=== PATIENT | male | born 1985 | race Caucasian/White ===

== ENCOUNTER 2022-10-25 09:53 | Emergency (ER) | payer MEDICAID, SELFPAY ==
--- NOTE | 2022-10-25 09:55 | XR_ITS ---
WS: [id number] XR chest 1V portable [id number] REASON FOR EXAM: cp FINDINGS: The aortic arch is prominent, however the chest is rotated to the left which likely is the cause of t his appearance. The heart is normal. Calcified granulomatous disease in both hemithoraces. No active pulmonary parenchymal or pleural disease. Bony thorax is intact without significant abnormality. XR/XR chest 1V portable [id number] IMPRESSION: Aortic arch appears prominent which likely is due to the rotated position of th e chest. No acute abnormality identified.
[2022-10-25 10:00] VITALS: BP 167/97; PULSE 75; RESP 16; TEMP 36.6; O2SAT 99; BMI 33.9
[2022-10-25 10:04] VITALS: BP 155/60; PULSE 66; O2SAT 94
--- NOTE | 2022-10-25 10:08 | ECG_ITS ---
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 Measurements Intervals [place] Rate: 67 P: 40 NH: 160 QRS: -5 QRSD: 101 T: 2 QT: 407 QTc: 432 Interpretive Statements SINUS RHYTHM No previous ECG available for comparison Electronically Signed On 10-25-2022 12:31:16 CDT by Lydia Silva M.D. [id number]
--- NOTE | 2022-10-25 10:33 | ED_ITS ---
HPI - Chest Pain General: Chief Complaint: Chest Pain Stated Complaint: chest pain, left arm pain Time Seen by Provider: 10/25/22 09:55 Source: patient Mode of arrival: ambulatory Limitations: no limitations History of Present Illness: 36-year-old male states he started having chest pain at 1 AM he states been a pressure type pain in the center of his chest states that lasted until this morning states that over the last 30 minutes an hour its actually resolved but he is concerned. Denies any fever denies any cough denies any worsening improving factors. Associated symptoms: Deny abdominal pain, dyspnea, fever(s), nausea or vomiting Review of Systems Const: Denies: fever(s), chills, body aches or change in appetite ENMT: Denies: throat pain or dental pain Card: Reports: chest pain Resp: Denies: dyspnea GI: Denies: abdominal pain, nausea, vomiting or diarrhea Musc: Denies: neck pain or back pain Skin/Breast: Denies: rash Neuro: Denies: headache(s) PFSH ED PFSH: Medical History Decreased libido Erectile dysfunction Psychiatric care Social History Smoking and tobacco status: light tobacco smoker smokeless tobacco Alcohol intake: current Alcohol intake frequency: few times a week Substance/Drug Use: unknown Adopted: Yes Caregiver/support person: No Lives independently: Yes Marital status: Single Current occupational status: employed Current gender identity: Male Physical Exam Const: COMMON NORMALS: no acute distress, patient oriented x3 and healthy appearing HENMT: COMMON NORMALS: normocephalic and atraumatic HEAD & SCALP: normocephalic and atraumatic Eye: COMMON NORMALS: Equal, round and reactive pupils present and EOMs intact bilaterally PUPIL: Yes Equal, round and reactive pupils present Neck/C-Spine: COMMON NORMALS: full ROM and supple Chest: COMMONS NORMALS: normal inspection of the chest and normal palpation of entire chest wall Resp: COMMON NORMALS: normal respiratory effort, No retractions, No use of accessory muscles and clear to auscultation bilaterally AUSCULTATION: clear to auscultation bilaterally Cardio: COMMON NORMALS: regular rate, regular rhythm and No murmurs present (Cardio) RATE: regular rate RHYTHM: regular rhythm GI: COMMON NORMALS: Normal to inspection, nondistended, normoactive bowel sounds present, Soft to palpation, non-tender and no masses PALPATION: Yes Soft to palpation Extremity: COMMON NORMALS: normal to inspection and full ROM Neuro: COMMON NORMALS: patient oriented x3, moves all extremities and no focal motor deficits Psych: COMMON NORMALS: mental status grossly normal, Normal thought process present and cooperative THOUGHT PROCESS: Normal thought process present Skin: COMMON NORMALS: no rashes or lesions noted and no wounds GENERAL SKIN EXAM: no rashes or lesions noted Course Vital Signs: Vital signs: Vital Signs Temperature 97.9 F 10/25/22 10:00 Pulse Rate 69 10/25/22 11:34 Respiratory Rate 22 H 10/25/22 11:34 Blood Pressure 151/84 10/25/22 11:34 Pulse Oximetry 99 10/25/22 11:34 Oxygen Delivery Me thod Room Air 10/25/22 11:34 MDM - Chest Pain Medical Decision Making Patient presents for chest pain that is atypical in nature CT of his chest shows no acute findings his troponin here is normal his pain has been going on since 1 AM I do not believe he needs a 2-hour troponin he has no signs of acute coronary syndrome no risk factors she is stable for discharge he is to follow-up his PCP and return if worsening. Medical Records I reviewed the patient's medical records. Lab Data I reviewed the patient's lab results. 10/25/22 10:27 10/25/22 10:27 Radiology Impressions Chest X-Ray 10/25/22 09:55 IMPRESSION: Aortic arch appears prominent which likely is due to the rotated position of the chest. No acute abnormality identified. Chest CTA 10/25/22 10:59 IMPRESSION: 1. No acute chest findings. 2. No evidence of pulmonary embolus. 3. Lungs are well aerated. 4. Tiny esophageal hiatal hernia. Laboratory Results WBC 6.6 10^3/uL (4.0-10.0) 10/25/22 10:27 RBC 5.10 10^6/uL (4.1-5.3) 10/25/22 10:27 Hgb 15.8 g/dL (11.7-16.6) 10/25/22 10:27 Hct 45.2 % (42.0-52.0) 10/25/22 10:27 MCV 88.6 fl (80-94) 10/25/22 10:27 MCH 31.0 pg (28.0-34.0) 10/25/22 10:27 MCHC 35.0 g/dL (30.0-36.0) 10/25/22 10:27 RDW 13.1 % (12.1-15.1) 10/25/22 10:27 Plt Count 238 10^3/cmm (130-400) 10/25/22 10:27 MPV 8.6 fL (7.4-10.4) 10/25/22 10:27 Neut % (Auto) 47.8 % 10/25/22 10:27 Lymph % (Auto) 40.9 % 10/25/22 10:27 [place] % (Auto) 7.7 % 10/25/22 10:27 Eos % (Auto) 2.4 % 10/25/22 10:27 Baso % (Auto) 0.9 % 10/25/22 10:27 Neut # (Auto) 3.16 10^3/uL (1.8-7.7) 10/25/22 10:27 Lymph # (Auto) 2.7 10^3/uL (0.8-4.8) 10/25/22 10:27 [place] # (Auto) 0.5 10^3/uL (0.2-0.9) 10/25/22 10:27 Eos # (Auto) 0.2 10^3/uL (0.0-0.8) 10/25/22 10:27 Baso # (Auto) 0.1 10^3/uL (0.0-0.1) 10/25/22 10:27 Nucleated RBC % (auto) 0 % 10/25/22 10:27 Nucleated RBCs # 0.0 /100WBC 10/25/22 10:27 Sodium 136 mmol/L (136-145) 10/25/22 10:27 Potassium 3.7 mmol/L (3.5-5.1) 10/25/22 10:27 Chloride 100 mmol/L (98-107) 10/25/22 10:27 Carbon Dioxide 20 mmol/L (22-29) L 10/25/22 10:27 Anion Gap 19.7 (5-19) H 10/25/22 10:27 BUN 11 mg/dL (6-20) 10/25/22 10:27 Creatinine 0.9 mg/dL (0.7-1.2) 10/25/22 10:27 GFR Calculation 96.6 mL/min (90-130) 10/25/22 10:27 Glucose 179 mg/dL (65-115) H 10/25/22 10:27 Calculated Osmolality 286 mOsm/kg (285-295) 10/25/22 10:27 Calcium 9.3 mg/dL (8.5-10.5) 10/25/22 10:27 Total Bilirubin 0.5 mg/dL (0.15-1.2) 10/25/22 10:27 AST 41 U/L (0-40) H 10/25/22 10:27 ALT 45 U/L (0-41) H 10/25/22 10:27 Alkaline Phosphatase 82 U/L (40-130) 10/25/22 10:27 Troponin T Baseline 8 ng/L (0-15) 10/25/22 10:27 Total Protein 6.9 g/dL (6.6-8.7) 10/25/22 10:27 Albumin 4.5 g/dL (3.5-5.2) 10/25/22 10:27 Globulin 2.4 g/dL (1.3-4.6) 10/25/22 10:27 Lipase 41 U/L (13-60) 10/25/22 10:27 EKG Data EKG 1: I personally reviewed and interpreted this EKG as follows: EKG interpretation date: 10/25/22 EKG interpretation time: 10:08 Interpretation: nsr hr [address] or twave abnormalities qrs 101 qtc 423 Discharge Plan Discharge Patient Disposition: Home Clinical Impression: Chest pain Condition: Stable Prescriptions: No Action Tylenol Ex Str Rapid Release 500 mg Tablet 1,000 mg PO Q6H PRN (Reason: Pain) Discharge Orders: Discharge ED (Routine); Ordered 10/25/22 Ordered By: Mazin Kelly Discharge Diet: Advance as tolerated Discharge Activity: Resume usual activity Patient Instructions: Chest Pain (ED) Coding Level of Care Code ED 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
[2022-10-25 10:37] LABS: Basophils # 0.1 10^3/uL (0.0-0.1); Basophils % 0.9 %; Eosinophils # 0.2 10^3/uL (0.0-0.8); Eosinophils % 2.4 %; Hematocrit 45.2 % (42.0-52.0); Hemoglobin 15.8 g/dL (11.7-16.6); Lymphocytes # 2.7 10^3/uL (0.8-4.8); Lymphocytes % 40.9 %; Mean Corpuscular Volume 88.6 fl (80-94); Mean Platelet Volume 8.6 fL (7.4-10.4); Monocytes # 0.5 10^3/uL (0.2-0.9); Monocytes % 7.7 %; Neutrophils # 3.16 10^3/uL (1.8-7.7); Neutrophils % 47.8 %; Nucleated Red Blood Cells % 0 %; Platelet Count 238 10^3/cmm (130-400); Red Cell Distribution Width 13.1 % (12.1-15.1); White Blood Count 6.6 10^3/uL (4.0-10.0)
[2022-10-25 10:52] LABS: Alanine Aminotransferase 45 U/L (0-41); Albumin Level 4.5 g/dL (3.5-5.2); Alkaline Phosphatase 82 U/L (40-130); Aspartate Amino Transferase 41 U/L (0-40); Blood Urea Nitrogen 11 mg/dL (6-20); Calcium 9.3 mg/dL (8.5-10.5); Carbon Dioxide 20 mmol/L (22-29); Chloride 100 mmol/L (98-107); Creatinine Clr Calc Pharmacy 150.3617; Globulin 2.4 g/dL (1.3-4.6); Glomerular Filtration Rate 96.6 mL/min (90-130); Glucose 179 mg/dL (65-115); Lipase 41 U/L (13-60); Osmolality Calculated 286 mOsm/kg (285-295); Sodium 136 mmol/L (136-145); Total Bilirubin 0.5 mg/dL (0.15-1.2); Total Protein 6.9 g/dL (6.6-8.7)
[2022-10-25 10:53] LABS: Troponin(5th) Baseline 8 ng/L (0-15)
[2022-10-25 10:54] LABS: Anion Gap 19.7 (5-19); Potassium 3.7 mmol/L (3.5-5.1)
--- NOTE | 2022-10-25 10:59 | CT_ITS ---
WS: [id number] CTA OF THE CHEST WITH PULMONARY EMBOLISM PROTOCOL TECHNIQUE: High-resolution contrast enhanced CTA of the chest with coronal and sagittal reformatted i mages with pulmonary embolism protocol. MIP images are also reviewed. CLINICAL INFORMATION: cp COMPARISON: None. DLP: 491.[address] scans at [facility] use at least one of these dose optimization techniques: automated e xposure control; mA and/or kV adjustment per patient size (includes targeted exams where dose is matc hed to clinical indication); or iterative reconstruction. FINDINGS: Proximal main pulmonary arteries are normal. Normal segmental and subsegmental pulmonary ar teries. No evidence of pulmonary embolus. Normal caliber thoracic aorta. Normal descending thoracic aorta. No mediastinal or hilar lymphadenopa thy. No axillary lymphadenopathy. Adrenal glands are normal. Tiny esophageal hiatal hernia.Lungs are well aerated. No acute pulmonary i nfiltrates. No focal pneumonia or pleural fluid. CT/CT angio chest PE protcl [id number] IMPRESSION: 1. No acute chest findings. 2. No evidence of pulmonary embolus. 3. Lungs are well aerated. 4. Tiny esophageal hiatal hernia.
[2022-10-25] MEDS: iohexol 350 mg/mL 500 mL Btl (per mL) IV (11:10)
[2022-10-25 11:34] VITALS: BP 151/84; PULSE 69; RESP 22; O2SAT 99
--- NOTE | 2022-10-25 11:55 | ECG_ITS ---
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 Measurements Intervals [place] Rate: 63 P: 67 VT: 191 QRS: -20 QRSD: 96 T: -8 QT: 385 QTc: 395 Interpretive Statements SINUS RHYTHM WITH SINUS ARRHYTHMIA Compared to ECG 10/25/2022 10:08:08 No significant changes Electronically Signed On 10-25-2022 12:36:06 CDT by Lydia Silva M.D. [id number]
[2022-10-25 13:25] VITALS: BP 130/83; PULSE 72; O2SAT 100
== END 2022-10-25 13:26 | disposition home or self-care (01) ==
PROVIDERS: Emergency Provider Emergency Medicine
DX: R07.9 Chest pain, unspecified (principal); F17.220 Nicotine dependence, chewing tobacco, uncomplicated
CPT/HCPCS: 71045; 71275; 80053; 83690; 84484; 85025; 93005; 99285; Q9967

== ENCOUNTER 2022-11-14 09:15 | Emergency (ER) | payer MEDICAID, SELFPAY ==
[2022-11-14] VITALS (7 sets, daily range): BP systolic 129–145; BP diastolic 85–98; PULSE 57–98; RESP 15–17; TEMP 36.8; O2SAT 97–100; BMI 31.0
[2022-11-14] MEDS: ondansetron 2 mg/ML SDV 2 mL 4 MG IVP (13:32)
[2022-11-14] MEDS: sodium chloride 0.9% 1,000 ML 999 ML IV (13:32)
--- NOTE | 2022-11-14 13:41 | ED_ITS ---
HPI - Abdominal Pain General: Chief Complaint: Abdominal Pain Stated Complaint: says hands are locking up, cold sweats Time Seen by Provider: 11/14/22 13:14 Source: patient Mode of arrival: ambulatory History of Present Illness: 36-year-old male presents emergency room with complaints of epigastric chest discomfort that begins after he eats. He said a couple episodes of this over the last 2 to 3 weeks. He was seen on October 25 cardiac enzymes at that time were negative. He has a slight bump in his transaminases normal alk phos normal T. bili. Had an episode today that began again after he ate he felt hot and flushed while he was outside so we gone from a fan fell like he is in a pass out he went and sat down in a truck he states he was trying to catch his breath leaning out the window of the truck his arms and bilaterally became numb and tingling he had some cramping in his hands. He is not having any chest pain no w. He has no known history of coronary artery disease or arrhythmias. He was nauseous with some these episodes but no vomiting. No history of GI bleed no hematemesis coffee-ground emesis no hematochezia or melena MD elicited complaint: abdominal pain Onset (ago): week(s) Pain Consistency: intermittent Location: Epigastric Severity: mild Quality: cramping and aching Radiation: none Migration to: no migration Exacerbating factors: nothing Associated Symptoms: Reports GI cramping; Denies anorexia, belching, bloating, change in bowel habits, change in stool character, chills, coffee ground emesis, constipation, diarrhea, dyspepsia, dysuria, excessive flatus, fever(s), heartburn, hematochezia, hematuria, hemate mesis, fecal incontinence, loose stools, melena, nausea, poor appetite, syncope and vomiting Review of Systems Const: Denies: fever(s) or chills Card: Denies: syncope GI: Reports: abdominal pain and GI cramping; Denies: nausea, vomiting, hematemesis, coffee ground emesis, heartburn, diarrhea, constipation, bloating, belching, excessive flatus, fecal incontinence, change in bowel habits, change in stool character, hematochezia or melena : Denies: dysuria or hematuria [facility] ED PFSH: Medical History Decreased libido Erectile dysfunction Psychiatric care Social History Smoking and tobacco status: light tobacco smoker smokeless tobacco Alcohol intake: current Alcohol intake frequency: few times a week Substance/Drug Use: unknown Adopted: Yes Caregiver/support person: No Lives independently: Yes Marital status: Single Current occupational status: employed Current gender identity: Male Physical Exam Const: GENERAL APPEARANCE: cooperative and comfortable ORIENTATION/CONSCIOUSNESS: Yes awake, Yes oriented to person, Yes oriented to place and Yes oriented to time HENMT: COMMON NORMALS: normocephalic, atraumatic and hearing grossly normal bilaterally HEAD & SCALP: normocephalic and atraumatic Resp: COMMON NORMALS: normal respiratory effort, No retractions, No use of accessory muscles and clear to auscultation bilaterally AUSCULTATION: clear to auscultation bilaterally Cardio: COMMON NORMALS: regular rate, regular rhythm and No murmurs present (Cardio) RATE: regular rate RHYTHM: regular rhythm GI: COMMON NORMALS: Soft to palpation and No hepatosplenomegaly present AUSCULTATION: Yes normoactive bowel sounds PALPATION: Yes Soft to palpation, No Tenderness to palpation present (GI), No Guarding due to palpation present (GI) and Yes No hepatosplenomegaly present Extremity: COMMON NORMALS: normal to inspection, capillary refill normal, no clubbing, cyanosis or edema, no calf tenderness and no pedal edema Neuro: SENSORIUM/ORIENTATION: Yes oriented to person, Yes oriented to place and Yes oriented to time Skin: COMMON NORMALS: no rashes or lesions noted GENERAL SKIN EXAM: no rashes or lesions noted Course Vital Signs: Vital signs: Vital Signs Temperature 98.2 F 11/14/22 09:54 Pulse Rate 64 11/14/22 14:45 Respiratory Rate 16 11/14/22 14:45 Blood Pressure 136/92 11/14/22 14:45 Pulse Oximetry 97 11/14/22 14:45 Oxygen Delivery Me thod Room Air 11/14/22 09:54 MDM - Abdominal Pain Medical Decision Making Labs and imaging reviewed. EKG unremarkable. From his description sounds like patient hyperventilated. We will start on proton pump inhibitor discussed anxiety with patient and hyperventilation had reviewed his other labs follow-up as needed Medical Records I reviewed the patient's medical records. Lab Data I reviewed the patient's lab results. 11/14/22 13:28 11/14/22 13:28 Labs/Radiology: Laboratory Results WBC 11.8 10^3/uL (4.0-10.0) H 11/14/22 13:28 RBC 5.45 10^6/uL (4.1-5.3) H 11/14/22 13:28 Hgb 16.3 g/dL (11.7-16.6) 11/14/22 13:28 Hct 47.9 % (42.0-52.0) 11/14/22 13:28 MCV 87.9 fl (80-94) 11/14/22 13:28 MCH 29.9 pg (28.0-34.0) 11/14/22 13:28 MCHC 34.0 g/dL (30.0-36.0) 11/14/22 13:28 RDW 13.1 % (12.1-15.1) 11/14/22 13:28 Plt Count 313 10^3/cmm (130-400) 11/14/22 13:28 MPV 8.5 fL (7.4-10.4) 11/14/22 13:28 Neut % (Auto) 58.2 % 11/14/22 13:28 Lymph % (Auto) 34.3 % 11/14/22 13:28 [place] % (Auto) 6.0 % 11/14/22 13:28 Eos % (Auto) 0.6 % 11/14/22 13:28 Baso % (Auto) 0.6 % 11/14/22 13:28 Neut # (Auto) 6.88 10^3/uL (1.8-7.7) 11/14/22 13:28 Lymph # (Auto) 4.1 10^3/uL (0.8-4.8) 11/14/22 13:28 [place] # (Auto) 0.7 10^3/uL (0.2-0.9) 11/14/22 13:28 Eos # (Auto) 0.1 10^3/uL (0.0-0.8) 11/14/22 13:28 Baso # (Auto) 0.1 10^3/uL (0.0-0.1) 11/14/22 13:28 Nucleated RBC % (auto) 0 % 11/14/22 13:28 Nucleated RBCs # 0.0 /100WBC 11/14/22 13:28 Sodium 138 mmol/L (136-145) 11/14/22 13:28 Potassium 4.2 mmol/L (3.5-5.1) 11/14/22 13:28 Chloride 101 mmol/L (98-107) 11/14/22 13:28 Carbon Dioxide 24 mmol/L (22-29) 11/14/22 13:28 Anion Gap 17.2 (5-19) 11/14/22 13:28 BUN 14 mg/dL (6-20) 11/14/22 13:28 Creatinine 1.0 mg/dL (0.7-1.2) 11/14/22 13:28 GFR Calculation 85.5 mL/min (90-130) L 11/14/22 13:28 Glucose 92 mg/dL (65-115) 11/14/22 13:28 Calculated Osmolality 286 mOsm/kg (285-295) 11/14/22 13:28 Calcium 10.1 mg/dL (8.5-10.5) 11/14/22 13:28 Total Bilirubin 0.5 mg/dL (0.15-1.2) 11/14/22 13:28 AST 24 U/L (0-40) 11/14/22 13:28 ALT 36 U/L (0-41) 11/14/22 13:28 Alkaline Phosphatase 83 U/L (40-130) 11/14/22 13:28 Troponin T Baseline 12 ng/L (0-15) 11/14/22 13:28 Total Protein 7.8 g/dL (6.6-8.7) 11/14/22 13:28 Albumin 5.0 g/dL (3.5-5.2) 11/14/22 13:28 Globulin 2.8 g/dL (1.3-4.6) 11/14/22 13:28 Lipase 25 U/L (13-60) 11/14/22 13:28 Discharge Plan Discharge Patient Disposition: Home Clinical Impression: Chest pain due to gastrointestinal reflux disease, Hyperventilation Condition: Stable Prescriptions: New pantoprazole 40 mg tablet,delayed release (DR/EC) 40 mg PO QAM 28 Days Qty: 28 0RF Rx Instructions: pt not filled rx as of 11/15/22 No Action hydroxyzine HCl 25 mg tablet 25 mg PO QID PRN (Reason: anxiety) Qty: 14 0RF acetaminophen [Tylenol Ex Str Rapid Release] 500 mg Tablet 1,000 mg PO Q6H PRN (Reason: Pain) Discharge Orders: Discharge ED (Routine); Ordered 11/14/22 Ordered By: Delfino Encarnacion Discharge Diet: As Directed Discharge Activity: Increase activity as tolerated Patient Instructions: Diet for Stomach Ulcers and Gastritis (ED), Opioid Safety, Pain Management Activity Restrictions/Additional Instructions: You were seen today for chest discomfort you have for the last several weeks. Your cardiac enzyme is negative EKG is unremarkable your chemistries and liver enzymes were all normal. Recommend diet as prescribed with your discharge instructions start pantoprazole 40 mg once daily. You are given enough for 28 days follow-up with your primary care doctor to continue the medications. Coding Level of Care Code ED Hand Outside Cutter for Yahir Munoz
[2022-11-14 13:42] LABS: Basophils # 0.1 10^3/uL (0.0-0.1); Basophils % 0.6 %; Eosinophils # 0.1 10^3/uL (0.0-0.8); Eosinophils % 0.6 %; Hematocrit 47.9 % (42.0-52.0); Hemoglobin 16.3 g/dL (11.7-16.6); Lymphocytes # 4.1 10^3/uL (0.8-4.8); Lymphocytes % 34.3 %; Mean Corpuscular Hemoglobin 29.9 pg (28.0-34.0); Mean Corpuscular Volume 87.9 fl (80-94); Mean Platelet Volume 8.5 fL (7.4-10.4); Monocytes # 0.7 10^3/uL (0.2-0.9); Neutrophils # 6.88 10^3/uL (1.8-7.7); Neutrophils % 58.2 %; Nucleated Red Blood Cells % 0 %; Platelet Count 313 10^3/cmm (130-400); Red Blood Count 5.45 10^6/uL (4.1-5.3); Red Cell Distribution Width 13.1 % (12.1-15.1); White Blood Count 11.8 10^3/uL (4.0-10.0)
[2022-11-14 13:58] LABS: Alanine Aminotransferase 36 U/L (0-41); Alkaline Phosphatase 83 U/L (40-130); Anion Gap 17.2 (5-19); Aspartate Amino Transferase 24 U/L (0-40); Blood Urea Nitrogen 14 mg/dL (6-20); Calcium 10.1 mg/dL (8.5-10.5); Carbon Dioxide 24 mmol/L (22-29); Chloride 101 mmol/L (98-107); Globulin 2.8 g/dL (1.3-4.6); Glomerular Filtration Rate 85.5 mL/min (90-130); Glucose 92 mg/dL (65-115); Lipase 25 U/L (13-60); Osmolality Calculated 286 mOsm/kg (285-295); Potassium 4.2 mmol/L (3.5-5.1); Sodium 138 mmol/L (136-145); Total Bilirubin 0.5 mg/dL (0.15-1.2); Total Protein 7.8 g/dL (6.6-8.7)
--- NOTE | 2022-11-14 14:12 | ECG_ITS ---
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 Measurements Intervals [place] Rate: 56 P: 63 CT: 186 QRS: -2 QRSD: 94 T: 19 QT: 407 QTc: 395 Interpretive Statements SINUS BRADYCARDIA Compared to ECG 10/25/2022 11:50:36 Sinus rhythm no longer present Sinus arrhythmia no longer present Electronically Signed On 11-14-2022 17:30:46 CDT by Jose Alfredo Molina M.D. [id number]
[2022-11-14 14:58] LABS: Troponin(5th) Baseline 12 ng/L (0-15)
== END 2022-11-14 15:52 | disposition home or self-care (01) ==
PROVIDERS: Emergency Provider Family Medicine
DX: K21.9 Gastro-esophageal reflux disease without esophagitis (principal); I10 Essential (primary) hypertension
CPT/HCPCS: 80053; 83690; 84484; 85025; 93005; 96361; 96374; 99284; J2405; J7030

== ENCOUNTER 2022-11-15 08:38 | Emergency (ER) | payer MEDICAID, SELFPAY ==
--- NOTE | 2022-11-15 08:44 | ECG_ITS ---
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 Measurements Intervals [place] Rate: 60 P: 32 HI: 175 QRS: 13 QRSD: 92 T: -9 QT: 388 QTc: 388 Interpretive Statements SINUS RHYTHM Compared to ECG 11/14/2022 14:12:04 Sinus bradycardia no longer present Electronically Signed On 11-15-2022 20:26:38 CDT by Chica Alvarado M.D. [email or web address] [id number]
[2022-11-15 09:01] VITALS: BP 157/95; PULSE 67; RESP 18; TEMP 36.6; O2SAT 99
[2022-11-15 09:51] LABS: Basophils % 0.4 %; Eosinophils # 0.1 10^3/uL (0.0-0.8); Hematocrit 45.2 % (42.0-52.0); Hemoglobin 15.4 g/dL (11.7-16.6); Lymphocytes # 3.7 10^3/uL (0.8-4.8); Lymphocytes % 40.4 %; Mean Corpuscular HGB Conc 34.1 g/dL (30.0-36.0); Mean Corpuscular Volume 88.1 fl (80-94); Mean Platelet Volume 8.6 fL (7.4-10.4); Monocytes # 0.6 10^3/uL (0.2-0.9); Monocytes % 6.6 %; Neutrophils # 4.68 10^3/uL (1.8-7.7); Neutrophils % 51.4 %; Nucleated Red Blood Cells % 0 %; Platelet Count 297 10^3/cmm (130-400); Red Blood Count 5.13 10^6/uL (4.1-5.3); Red Cell Distribution Width 12.8 % (12.1-15.1); White Blood Count 9.1 10^3/uL (4.0-10.0)
[2022-11-15] MEDS: iohexol 350 mg/mL 500 mL Btl (per mL) IV (09:57)
[2022-11-15 10:00] VITALS: BP 154/92; PULSE 77; RESP 20; O2SAT 100
[2022-11-15 10:17] LABS: Alveolar-Arterial Oxygen Gradi 0.2 mmHg (5-10); Base Excess ABG -0.4 mmol/L (-2.0-2.0); Blood Gas Allen Test Pos; Blood Gas Operator Identificat CAK; Blood Gas Sample Site Radial, left; Blood Gas Sample Type Arterial; Carboxyhemoglobin 0.6 %THgb (0.4-20.1); HCO3 ABG 18.4 mmol/L (22-26); HGB O2 Sat 98.8 % (95-100); Ionized Calcium Level - ABG 1.2 mmol/L (1.1-1.4); Methemoglobin 0.3 % (0.4-1.5); Oxygen Device ROOM AIR; Oxygen Saturation ABG 99.7; Total Hemoglobin 16.3 g/dL (14-18)
[2022-11-15 10:20] LABS: ABG PCO2 19.2 mmHg (35-45); ABG PH Result 7.59 (7.35-7.45)
[2022-11-15 10:20] LABS: Alanine Aminotransferase 30 U/L (0-41); Albumin Level 4.6 g/dL (3.5-5.2); Alkaline Phosphatase 76 U/L (40-130); Anion Gap 17.9 (5-19); Aspartate Amino Transferase 20 U/L (0-40); Blood Urea Nitrogen 13 mg/dL (6-20); Calcium 9.5 mg/dL (8.5-10.5); Carbon Dioxide 20 mmol/L (22-29); Chloride 104 mmol/L (98-107); Globulin 2.4 g/dL (1.3-4.6); Glomerular Filtration Rate 96.6 mL/min (90-130); Glucose 104 mg/dL (65-115); Lipase 21 U/L (13-60); Osmolality Calculated 286 mOsm/kg (285-295); Potassium 3.9 mmol/L (3.5-5.1); Sodium 138 mmol/L (136-145); Total Bilirubin 0.7 mg/dL (0.15-1.2)
[2022-11-15 10:21] LABS: Troponin(5th) Baseline 9 ng/L (0-15)
[2022-11-15 10:59] VITALS: BP 133/91; PULSE 62; RESP 17; O2SAT 98
[2022-11-15 11:16] VITALS: BP 140/88; PULSE 70; RESP 18; O2SAT 99
--- NOTE | 2022-11-15 12:56 | ED_ITS ---
HPI - General Adult General: Chief complaint: General Medical Stated complaint: bp issues, sent by clinic Time Seen by Provider: 11/15/22 08:43 Source: patient Mode of arrival: ambulatory History of Present Illness: 36-year-old male presents emergency room again with left-sided chest discomfort of squeezing sensation numbness and tingling radiating into his arms bilaterally was going to try to establish with for a PCP today his blood pressure was elevated. Has been seen several times recently. Cardiac enzymes have been neg ative he was given proton pump inhibitor yesterday no hematochezia melena hematemesis or coffee-ground emesis liver functions yesterday were normal. Onset (ago): minute(s) Associated symptoms: Reports chest pain, dyspnea, palpitations and short of breath; Deny confusion, cough, diaphoresis, decreased appetite, fevers/chills, headach e(s), malaise, nausea, rash, seizures, syncope, vomiting, weakness or other Treatments prior to arrival: none Review of Systems Const: Denies: fever(s), chills, malaise or diaphoresis ENMT: Denies: throat pain, ear or mastoid pain, nasal discharge or nasal congestion Card: Reports: chest pain and palpitations; Denies: syncope Resp: Reports: dyspnea GI: Denies: abdominal pain, nausea or vomiting : Denies: flank pain, dysuria, urinary frequency or urinary urgency Musc: Denies: neck pain or back pain Skin/Breast: Denies: rash or pruritus Neuro: Denies: headache(s) or confusion PFSH ED PFSH: Medical History Decreased libido Erectile dysfunction Psychiatric care Social History Smoking and tobacco status: light tobacco smoker smokeless tobacco Alcohol intake: current Alcohol intake frequency: few times a week Substance/Drug Use: unknown Adopted: Yes Caregiver/support person: No Lives independently: Yes Marital status: Single Current occupational status: employed Current gender identity: Male Physical Exam Const: GENERAL APPEARANCE: cooperative and comfortable ORIENTATION/CONSCIOUSNESS: Yes awake, Yes oriented to person, Yes oriented to pl [address] and Yes oriented to time HENMT: COMMON NORMALS: normocephalic, atraumatic and hearing grossly normal bilaterally HEAD & SCALP: normocephalic and atraumatic Resp: COMMON NORMALS: normal respiratory effort, No retractions, No use of accessory muscles and clear to auscultation bilaterally AUSCULTATION: clear to auscultation bilaterally Cardio: COMMON NORMALS: regular rate, regular rhythm and No murmurs present (Cardio) RATE: regular rate RHYTHM: regular rhythm GI: COMMON NORMALS: Soft to palpation and No hepatosplenomegaly present AUSCULTATION: Yes normoactive bowel sounds PALPATION: Yes Soft to palpation, No Tenderness to palpation present (GI), No Guarding due to palpation present (GI) and Yes No hepatosplenomegaly present Extremity: COMMON NORMALS: normal to inspection, capillary refill normal, no clubbing, cyanosis or edema, no calf tenderness and no pedal edema Neuro: SENSORIUM/ORIENTATION: Yes oriented to person, Yes oriented to place and Yes oriented to time Skin: COMMON NORMALS: no rashes or lesions noted GENERAL SKIN EXAM: no rashes or lesions noted Course Vital Signs: Vital signs: Vital Signs Temperature 97.9 F 11/15/22 09:01 Pulse Rate 70 11/15/22 11:16 Respiratory Rate 18 11/15/22 11:16 Blood Pressure 140/88 11/15/22 11:16 Pulse Oximetry 99 11/15/22 11:16 Oxygen Delivery Me thod Room Air 11/15/22 10:00 [facility] - General Adult Medical Decision Making Shortly after initially seen the patient began being more tachypneic complaint reports chest tightness with numbness and tingling in his face and extremities ABG was done patient is hyperventilating with a pH near 7.6 PCO2 that is significantly depressed. Reexamination is no focal neurologic deficit noted CTs of the head and CTA head and neck are canceled. Discussed with the patient the findings. This is consistent with what we had rather suspected the a lot of this is anxiety driven he does have some relationship issues at work, over the last few months that are weighing on him. We will discharge him home hydroxyzine to use as needed and referral to [facility] for long-term management of anxiety. Medical Records I reviewed the patient's medical records. Lab Data I reviewed the patient's lab results. 11/15/22 09:28 11/15/22 09:28 Laboratory Results WBC 9.1 10^3/uL (4.0-10.0) 11/15/22 09: RBC 5.13 10^6/uL (4.1-5.3) 11/15/22 09: Hgb 15.4 g/dL (11.7-16.6) 11/15/22 09: Hct 45.2 % (42.0-52.0) 11/15/22 09: MCV 88.1 fl (80-94) 11/15/22 09: MCH 30.0 pg (28.0-34.0) 11/15/22 09: MCHC 34.1 g/dL (30.0-36.0) 11/15/22 09: RDW 12.8 % (12.1-15.1) 11/15/22 09: Plt Count 297 10^3/cmm (130-400) 11/15/22 09: MPV 8.6 fL (7.4-10.4) 11/15/22 09: Neut % (Auto) 51.4 % 11/15/22 09: Lymph % (Auto) 40.4 % 11/15/22 09:28 Bee % (Auto) 6.6 % 11/15/22 09: Eos % (Auto) 1.0 % 11/15/22 09: Baso % (Auto) 0.4 % 11/15/22 09: Neut # (Auto) 4.68 10^3/uL (1.8-7.7) 11/15/22 09: Lymph # (Auto) 3.7 10^3/uL (0.8-4.8) 11/15/22 09:28 Bee # (Auto) 0.6 10^3/uL (0.2-0.9) 11/15/22 09: Eos # (Auto) 0.1 10^3/uL (0.0-0.8) 11/15/22 09: Baso # (Auto) 0.0 10^3/uL (0.0-0.1) 11/15/22 09: Nucleated RBC % (auto) 0 % 11/15/22 09: Nucleated RBCs # 0.0 /100WBC 11/15/22 09: Specimen Type Arterial 11/15/22 10:05 Sample Site Radial, left 11/15/22 10:05 ABG pH 7.59 (7.35-7.45) H* 11/15/22 10:05 ABG pCO2 19.2 mmHg (35-45) L* 11/15/22 10:05 ABG pO2 122.0 mmHg (80.0-100.0) H 11/15/22 10:05 ABG HCO3 18.4 mmol/L (22-26) L 11/15/22 10:05 ABG O2 Saturation 99.7 11/15/22 10:05 ABG Base Excess -0.4 mmol/L (-2.0-2.0) 11/15/22 10:05 Horacio Test Pos 11/15/22 10:05 A-a O2 Gradient 0.2 mmHg (5-10) L 11/15/22 10:05 Hematocrit 50.0 % (42-52) 11/15/22 10:05 Hgb O2 Saturation 98.8 % (95-100) 11/15/22 10:05 Carboxyhemoglobin 0.6 %THgb (0.4-20.1) 11/15/22 10:05 Methemoglobin 0.3 % (0.4-1.5) L 11/15/22 10:05 Total Hemoglobin 16.3 g/dL (14-18) 11/15/22 10:05 Sodium 141.0 mmol/L (131-143) 11/15/22 10:05 Potassium 4.0 mmol/L (3.5-5.0) 11/15/22 10:05 Glucose 106.0 mg/dL (70-115) 11/15/22 10:05 Ionized Calcium 1.2 mmol/L (1.1-1.4) 11/15/22 10:05 O2 Delivery Device Room air 11/15/22 10:05 FiO2 21.0 % 11/15/22 10:05 Inspecting Machine Adjuster ID Cak 11/15/22 10:05 Sodium 138 mmol/L (136-145) 11/15/22 09:28 Potassium 3.9 mmol/L (3.5-5.1) 11/15/22 09:28 Chloride 104 mmol/L (98-107) 11/15/22 09:28 Carbon Dioxide 20 mmol/L (22-29) L 11/15/22 09:28 Anion Gap 17.9 (5-19) 11/15/22 09:28 BUN 13 mg/dL (6-20) 11/15/22 09:28 Creatinine 0.9 mg/dL (0.7-1.2) 11/15/22 09:28 GFR Calculation 96.6 mL/min (90-130) 11/15/22 09:28 Glucose 104 mg/dL (65-115) 11/15/22 09:28 Calculated Osmolality 286 mOsm/kg (285-295) 11/15/22 09:28 Calcium 9.5 mg/dL (8.5-10.5) 11/15/22 09:28 Total Bilirubin 0.7 mg/dL (0.15-1.2) 11/15/22 09:28 AST 20 U/L (0-40) 11/15/22 09:28 ALT 30 U/L (0-41) 11/15/22 09:28 Alkaline Phosphatase 76 U/L (40-130) 11/15/22 09:28 Troponin T Baseline 9 ng/L (0-15) 11/15/22 09:28 Total Protein 7.0 g/dL (6.6-8.7) 11/15/22 09:28 Albumin 4.6 g/dL (3.5-5.2) 11/15/22 09:28 Globulin 2.4 g/dL (1.3-4.6) 11/15/22 09:28 Lipase 21 U/L (13-60) 11/15/22 09:28 Discharge Plan Discharge Patient Disposition: Home Clinical Impression: Hyperventilation syndrome Condition: Stable Prescriptions: New hydroxyzine HCl 25 mg tablet 25 mg PO QID PRN (Reason: anxiety) Qty: 14 0RF No Action acetaminophen [Tylenol Ex Str Rapid Release] 500 mg Tablet 1,000 mg PO Q6H PRN (Reason: Pain) pantoprazole 40 mg tablet,delayed release (DR/EC) 40 mg PO QAM 28 Days Qty: 28 0RF Rx Instructions: pt not filled rx as of 11/15/22 Discharge Orders: Discharge ED (Routine); Ordered 11/15/22 Ordered By: Delfino Encarnacion Discharge Diet: Usual diet Discharge Activity: Resume usual activity Patient Instructions: Opioid Safety, Pain Management Activity Restrictions/Additional Instructions: Case management will make arrangements for you to follow-up with behavioral health clinic. Coding Level of Care Code ED Hydraulic Punch Press Operator for Yahir Munoz
--- NOTE | 2022-11-15 14:47 | ED_ITS ---
HPI - General Adult General: Chief complaint: General Medical Stated complaint: bp issues, sent by clinic Time Seen by Provider: 11/15/22 08:43 Source: patient Mode of arrival: ambulatory History of Present Illness: 36-year-old male who presents emergency room with complaints of chest discomfort. He has been in several times in the last week and a half he was here yesterday. Evaluations have been negative previously including cardiac enzymes. There was concern about his gallbladder liver enzymes are unremarkable. He was given proton pump inhibitor yesterday this morning he went to a local physician's office to establish for PCP and noted to have elevated blood pressure was complaining chest comfort was referred to the emergency room. Associated symptoms: Reports chest pain, dyspnea and short of breath; Deny confusion, cough, diaphoresis, decreased appetite, fevers/chills, he adache(s), malaise, nausea, rash, palpitations, seizures, syncope, vomiting or weakness Treatments prior to arrival: none Review of Systems Const: Denies: fever(s), chills, malaise or diaphoresis ENMT: Denies: throat pain, ear or mastoid pain, nasal discharge or nasal c ongestion Card: Reports: chest pain; Denies: palpitations or syncope Resp: Reports: dyspnea; Denies: productive cough or non-productive cough GI: Denies: abdominal pain, nausea or vomiting : Denies: flank pain, dysuria, urinary frequency or urinary urgency Musc: Denies: neck pain or back pain Skin/Breast: Denies: rash Neuro: Denies: headache(s) or confusion PFSH ED PFSH: Medical History Decreased libido Erectile dysfunction Psychiatric care Social History Smoking and tobacco status: light tobacco smoker smokeless tobacco Alcohol intake: current Alcohol intake frequency: few times a week Substance/Drug Use: unknown Adopted: Yes Caregiver/support person: No Lives independently: Yes Marital status: Single Current occupational status: employed Current gender identity: Male Physical Exam Const: GENERAL APPEARANCE: cooperative and comfortable ORIENTATION/CONSCIOUSNESS: Yes awake, Yes oriented to person, Yes oriented to place and Yes oriented to time HENMT: COMMON NORMALS: normocephalic, atraumatic and hearing grossly normal bilaterally HEAD & SCALP: normocephalic and atraumatic Resp: COMMON NORMALS: normal respiratory effort, No retractions, No use of accessory muscles and clear to auscultation bilaterally AUSCULTATION: clear to auscultation bilaterally Cardio: COMMON NORMALS: regular rate, regular rhythm and No murmurs present (Cardio) RATE: regular rate RHYTHM: regular rhythm GI: COMMON NORMALS: Soft to palpation and No hepatosplenomegaly present AUSCULTATION: Yes normoactive bowel sounds PALPATION: Yes Soft to palpation, No Tenderness to palpation present (GI), No Guarding due to palpation present (GI) and Yes No hepatosplenomegaly present Extremity: COMMON NORMALS: normal to inspection, capillary refill normal, no clubbing, cyanosis or edema, no calf tenderness and no pedal edema Neuro: SENSORIUM/ORIENTATION: Yes oriented to person, Yes oriented to place and Yes oriented to time Skin: COMMON NORMALS: no rashes or lesions noted GENERAL SKIN EXAM: no rashes or lesions noted Course Vital Signs: Vital signs: Vital Signs Temperature 97.9 F 11/15/22 09:01 Pulse Rate 70 11/15/22 11:16 Respiratory Rate 18 11/15/22 11:16 Blood Pressure 140/88 11/15/22 11:16 Pulse Oximetry 99 11/15/22 11:16 Oxygen Delivery Me thod Room Air 11/15/22 10:00 [facility] - General Adult Medical Decision Making After initially seen the patient he began having more chest tightness numbness in his face and extremities and ABG was done showed significant hyper ventilation of the respiratory alkalosis is PCO2 is down to 17 his pH is at 7.6. Reviewed the findings with the patient. We had ordered a CTA head and neck this was canceled after being able to objectively show the cause of his symptoms reviewed this with the patient discharge home continue the PPI we will give him hydroxyzine to use as needed and set him up for behavioral health. Medical Records I reviewed the patient's medical records. Lab Data I reviewed the patient's lab results. 11/15/22 09:28 11/15/22 09:28 Laboratory Results WBC 9.1 10^3/uL (4.0-10.0) 11/15/22 09:28 RBC 5.13 10^6/uL (4.1-5.3) 11/15/22 09:28 Hgb 15.4 g/dL (11.7-16.6) 11/15/22 09: Hct 45.2 % (42.0-52.0) 11/15/22 09: MCV 88.1 fl (80-94) 11/15/22 09:28 MCH 30.0 pg (28.0-34.0) 11/15/22 09: MCHC 34.1 g/dL (30.0-36.0) 11/15/22 09: RDW 12.8 % (12.1-15.1) 11/15/22 09: Plt Count 297 10^3/cmm (130-400) 11/15/22 09: MPV 8.6 fL (7.4-10.4) 11/15/22 09:28 Neut % (Auto) 51.4 % 11/15/22 09: Lymph % (Auto) 40.4 % 11/15/22 09: [place] % (Auto) 6.6 % 11/15/22 09:28 Eos % (Auto) 1.0 % 11/15/22 09: Baso % (Auto) 0.4 % 11/15/22 09: Neut # (Auto) 4.68 10^3/uL (1.8-7.7) 11/15/22 09: Lymph # (Auto) 3.7 10^3/uL (0.8-4.8) 11/15/22 09: [place] # (Auto) 0.6 10^3/uL (0.2-0.9) 11/15/22 09: Eos # (Auto) 0.1 10^3/uL (0.0-0.8) 11/15/22 09: Baso # (Auto) 0.0 10^3/uL (0.0-0.1) 11/15/22 09: Nucleated RBC % (auto) 0 % 11/15/22 09: Nucleated RBCs # 0.0 /100WBC 11/15/22 09:28 Specimen Type Arterial 11/15/22 10:05 Sample Site Radial, left 11/15/22 10:05 ABG pH 7.59 (7.35-7.45) H* 11/15/22 10:05 ABG pCO2 19.2 mmHg (35-45) L* 11/15/22 10:05 ABG pO2 122.0 mmHg (80.0-100.0) H 11/15/22 10:05 ABG HCO3 18.4 mmol/L (22-26) L 11/15/22 10:05 ABG O2 Saturation 99.7 11/15/22 10:05 ABG Base Excess -0.4 mmol/L (-2.0-2.0) 11/15/22 10:05 Horacio Test Pos 11/15/22 10:05 A-a O2 Gradient 0.2 mmHg (5-10) L 11/15/22 10:05 Hematocrit 50.0 % (42-52) 11/15/22 10:05 Hgb O2 Saturation 98.8 % (95-100) 11/15/22 10:05 Carboxyhemoglobin 0.6 %THgb (0.4-20.1) 11/15/22 10:05 Methemoglobin 0.3 % (0.4-1.5) L 11/15/22 10:05 Total Hemoglobin 16.3 g/dL (14-18) 11/15/22 10:05 Sodium 141.0 mmol/L (131-143) 11/15/22 10:05 Potassium 4.0 mmol/L (3.5-5.0) 11/15/22 10:05 Glucose 106.0 mg/dL (70-115) 11/15/22 10:05 Ionized Calcium 1.2 mmol/L (1.1-1.4) 11/15/22 10:05 O2 Delivery Device Room air 11/15/22 10:05 FiO2 21.0 % 11/15/22 10:05 Correctional Supervising Cook ID Cak 11/15/22 10:05 Sodium 138 mmol/L (136-145) 11/15/22 09:28 Potassium 3.9 mmol/L (3.5-5.1) 11/15/22 09:28 Chloride 104 mmol/L (98-107) 11/15/22 09:28 Carbon Dioxide 20 mmol/L (22-29) L 11/15/22 09:28 Anion Gap 17.9 (5-19) 11/15/22 09:28 BUN 13 mg/dL (6-20) 11/15/22 09:28 Creatinine 0.9 mg/dL (0.7-1.2) 11/15/22 09:28 GFR Calculation 96.6 mL/min (90-130) 11/15/22 09:28 Glucose 104 mg/dL (65-115) 11/15/22 09:28 Calculated Osmolality 286 mOsm/kg (285-295) 11/15/22 09:28 Calcium 9.5 mg/dL (8.5-10.5) 11/15/22 09:28 Total Bilirubin 0.7 mg/dL (0.15-1.2) 11/15/22 09:28 AST 20 U/L (0-40) 11/15/22 09:28 ALT 30 U/L (0-41) 11/15/22 09:28 Alkaline Phosphatase 76 U/L (40-130) 11/15/22 09:28 Troponin T Baseline 9 ng/L (0-15) 11/15/22 09:28 Total Protein 7.0 g/dL (6.6-8.7) 11/15/22 09:28 Albumin 4.6 g/dL (3.5-5.2) 11/15/22 09:28 Globulin 2.4 g/dL (1.3-4.6) 11/15/22 09:28 Lipase 21 U/L (13-60) 11/15/22 09:28 Discharge Plan Discharge Patient Disposition: Home Clinical Impression: Hyperventilation syndrome Condition: Stable Prescriptions: New hydroxyzine HCl 25 mg tablet 25 mg PO QID PRN (Reason: anxiety) Qty: 14 0RF No Action acetaminophen [Tylenol Ex Str Rapid Release] 500 mg Tablet 1,000 mg PO Q6H PRN (Reason: Pain) pantoprazole 40 mg tablet,delayed release (DR/EC) 40 mg PO QAM 28 Days Qty: 28 0RF Rx Instructions: pt not filled rx as of 11/15/22 Discharge Orders: Discharge ED (Routine); Ordered 11/15/22 Ordered By: Delfino Encarnacion Discharge Diet: Usual diet Discharge Activity: Resume usual activity Patient Instructions: Opioid Safety, Pain Management Activity Restrictions/Additional Instructions: Case management will make arrangements for you to follow-up with behavioral health clinic. Coding Level of Care Code ED Feed Mill Supervisor for Yahir Munoz
--- NOTE | 2022-11-16 05:56 | DCPLANNER ---
Addendum entered by Miryam Hughes 11/29/22 11:08: manager of purchasing received the following message from Patti Goldberg at [facility] regarding follow up appointment: I called today 11/20/22 to explain assessment process, no voicemail set up. Original Note: manager of purchasing had message to schedule a follow up appointment for patient with [facility]. manager of purchasing sent patients information to the scheduling staff at [facility] and emailed patients information to Patti Goldberg operating room coordinator at [facility]. Patients information will be printed and reviewed. Clinic will call patient with appointment information.
== END 2022-11-15 11:18 | disposition home or self-care (01) ==
PROVIDERS: Emergency Provider Family Medicine
DX: F45.8 Other somatoform disorders (principal); F17.200 Nicotine dependence, unspecified, uncomplicated; Z79.899 Other long term (current) drug therapy
CPT/HCPCS: 36415; 36600; 80051; 80053; 82330; 82805; 83690; 84484; 85025; 93005; 99285; Q9967

== ENCOUNTER 2022-11-16 17:32 | Outpatient (CLI) | payer MEDICAID, SELFPAY ==
--- NOTE | 2022-11-16 17:40 | XR_ITS ---
WS: [id number] EXAMINATION: XR cervical spine 3V* [id number] Cervical spine 3 views REASON FOR EXAM: Muscle Cramps, Atypical Chest Pain COMPARISON: None available. FINDINGS: There is no sign of acute fracture or subluxation. Vertebral body heights and intervertebral disc sp aces are maintained. The cervical bony alignment and osseous densities appear normal. There is no p revertebral soft tissue change. XR/XR cervical spine 3V* [id number] IMPRESSION: No acute osseous abnormality.
--- NOTE | 2022-11-16 17:40 | XR_ITS ---
WS: [id number] EXAMINATION: XR chest 2V* [id number] REASON FOR EXAM: Muscle Cramps, Atypical Chest Pain COMPARISON: 10/25/2022 ORDER DATE: 11/16/2022 5:41 PM FINDINGS: The lungs are clear of infiltrate. The cardiac and mediastinal outlines are unremarkable. There ar e no significant pleural effusions . No significant abnormalities are noted in the spine or remainder of the bony thorax. XR/XR chest 2V* [id number] IMPRESSION: NO ACUTE PULMONARY CHANGE.
== END 2022-11-16 17:33 | disposition home or self-care (01) ==
PROVIDERS: PCP Nurse Practitioner Family; Visit Provider Nurse Practitioner Family
DX: R07.89 Other chest pain (principal); R25.2 Cramp and spasm
CPT/HCPCS: 71046; 72040

== ENCOUNTER 2023-05-21 20:38 | Emergency (ER) | payer BC, MEDICAID, SELFPAY ==
--- NOTE | 2023-05-21 20:42 | XRR_ITS ---
PROCEDURE INFORMATION: Exam: XR Chest Exam date and time: 05/21/2023 8:53 PM Age: 37 years old Clinical indication: Pain; Chest pressure; Additional info: Cp TECHNIQUE: Imaging protocol: Radiologic exam of the chest. Views: 1 view. COMPARISON: CR XR chest 2V* [id number] 11/16/2022 5:41 PM FINDINGS: Lungs: No consolidation. Pleural spaces: No large pleural effusion. No pneumothorax. Heart/Mediastinum: Unremarkable. No cardiomegaly. Bones/joints: No acute abnormality. XR/XR chest 1V portable [id number] IMPRESSION: No acute findings.
[2023-05-21 20:43] VITALS: BP 189/120; PULSE 88; RESP 16; TEMP 36.6; O2SAT 98
--- NOTE | 2023-05-21 20:53 | ECG_ITS ---
[facility] Test Date: 2023-05-21 Pat Name: Tang Hogue Department: Room: Gender: Male Skewer Up: : 1985 Requested By: Mazin Kelly Order Number: [id number] Luis Enrique MD: Jose Alfredo Molina M.D. Measurements Intervals [place] Rate: 87 P: 61 MO: 167 QRS: -10 QRSD: 94 T: 31 QT: 358 QTc: 432 Interpretive Statements SINUS RHYTHM Compared to ECG 11/15/2022 09:12:50 No significant changes Electronically Signed On 05-22-2023 18:32:52 [place]ON LINER by Jose Alfredo Molina M.D. [id number]
[2023-05-21 21:14] LABS: Basophils # 0.1 10^3/uL (0.0-0.1); Basophils % 0.5 %; Eosinophils # 0.1 10^3/uL (0.0-0.8); Eosinophils % 0.4 %; Hematocrit 43.7 % (37-53); Lymphocytes # 4.4 10^3/uL (0.8-4.8); Lymphocytes % 32.1 %; Mean Corpuscular HGB Conc 34.6 g/dL (30-55); Mean Corpuscular Hemoglobin 30.7 pg (27-33); Mean Corpuscular Volume 88.8 fl (82-101); Mean Platelet Volume 8.2 fL (7.4-10.4); Monocytes # 0.9 10^3/uL (0.2-0.9); Monocytes % 6.5 %; Neutrophils # 8.15 10^3/uL (1.8-7.7); Neutrophils % 60.2 %; Nucleated Red Blood Cells % 0 %; Platelet Count 285 10^3/cmm (157-399); Red Blood Count 4.92 10^6/uL (3.85-5.65); Red Cell Distribution Width 13.2 % (12.1-15.1); White Blood Count 13.55 10^3/uL (3.29-11.43)
--- NOTE | 2023-05-21 21:32 | ED_ITS ---
HPI - Chest Pain 2 General: Chief Complaint: Chest Pain Stated Complaint: sob pain left arm Time Seen by Provider: 05/21/23 21:26 Source: patient and EMS Mode of arrival: EMS Limitations: no limitations History of Present Illness: 37-year-old male states he has a long hi story of hypertension he states he is on lisinopril but has not taken over the last weeks he does not like the way it makes him feel he states that tonight he was eating at 7 states that he felt like his blood pressure did increase is having some mild chest discomfort denies any severe pain denies headache denies any vomiting or diarrhea. Associated symptoms: Deny abdominal pain, dyspnea, fever(s), nausea or vomiting Review of Systems 2 Const: Denies: fever(s), chills, body aches or change in appetite ENMT: Denies: throat pain or dental pain Card: Reports: chest pain Resp: Denies: dyspnea GI: Denies: abdominal pain, nausea, vomiting or diarrhea : Denies: dysuria Musc: Denies: neck pain or back pain Skin/Breast: Denies: rash Neuro: Denies: headache(s) PFSH ED 2 PFSH: Medical History (Updated 05/21/23 @ 21:57 by Mazin Kelly MD) Decreased libido Erectile dysfunction Social History Smoking and tobacco/nicotine status: light tobacco/nicotine user smokeless tobacco Alcohol intake: current Alcohol intake frequency: few times a week Substance/Drug Use: unknown Adopted: Yes Caregiver/support person: No Lives independently: Yes Marital status: Single Current occupational status: employed Current gender identity: Male Physical Exam 2 Const: COMMON NORMALS: no acute distress, patient oriented x3 and healthy appearing HENMT: COMMON NORMALS: normocephalic and atraumatic HEAD & SCALP: n ormocephalic and atraumatic Neck/C-Spine: COMMON NORMALS: full ROM and supple Chest: COMMONS NORMALS: normal inspection of the chest Resp: COMMON NORMALS: normal respiratory effort, No retractions, No use of accessory muscles and clear to auscultation bilaterally AUSCULTATION: clear to auscultation bilaterally Cardio: COMMON NORMALS: regular rate, regular rhythm and No murmurs present (Cardio) RATE: regular rate RHYTHM: regular rhythm Extremity: COMMON NORMALS: normal to inspection and full ROM Neuro: COMMON NORMALS: patient oriented x3, moves all extremities and no focal motor deficits Psych: COMMON NORMALS: mental status grossly normal, Normal thought process present and cooperative THOUGHT PROCESS: Normal thought process present Skin: COMMON NORMALS: no rashes or lesions noted and no wounds GENERAL SKIN EXAM: no rashes or lesions noted Course 2 Vital Signs: Vital signs: Vital Signs Temperature 97.8 F 05/21/23 20:43 Pulse Rate 88 05/21/23 20:43 Respiratory Rate 16 05/21/23 20:43 Blood Pressure 189/120 05/21/23 20:43 Pulse Oximetry 98 05/21/23 20:43 Oxygen Delivery Me thod Room Air 05/21/23 20:43 MDM - Chest Pain Medical Decision Making Patient presents here with hypertension his blood pressure here is improved his initial troponin is normal no signs of acute coronary syndrome he is not taking his meds over the last week he does not like his lisinopril so we will start him on Norvasc he is follow-up with PCP return if worsening. Medical Records I reviewed the patient's medical records. Lab Data I reviewed the patient's lab results. 05/21/23 21:09 05/21/23 21:09 Radiology Impressions Chest X-Ray 05/21/23 20:42 IMPRESSION: No acute findings. Laboratory Results WBC 13.55 10^3/uL (3.29-11.43) H 05/21/23 21:09 RBC 4.92 10^6/uL (3.85-5.65) 05/21/23 21:09 Hgb 15.10 g/dL (11.27-16.99) 05/21/23 21:09 Hct 43.7 % (37-53) 05/21/23 21:09 MCV 88.8 fl (82-101) 05/21/23 21:09 MCH 30.7 pg (27-33) 05/21/23 21:09 MCHC 34.6 g/dL (30-55) 05/21/23 21:09 RDW 13.2 % (12.1-15.1) 05/21/23 21:09 Plt Count 285 10^3/cmm (157-399) 05/21/23 21:09 MPV 8.2 fL (7.4-10.4) 05/21/23 21:09 Neut % (Auto) 60.2 % 05/21/23 21:09 Lymph % (Auto) 32.1 % 05/21/23 21:09 [place] % (Auto) 6.5 % 05/21/23 21:09 Eos % (Auto) 0.4 % 05/21/23 21:09 Baso % (Auto) 0.5 % 05/21/23 21:09 Neut # (Auto) 8.15 10^3/uL (1.8-7.7) H 05/21/23 21:09 Lymph # (Auto) 4.4 10^3/uL (0.8-4.8) 05/21/23 21:09 [place] # (Auto) 0.9 10^3/uL (0.2-0.9) 05/21/23 21:09 Eos # (Auto) 0.1 10^3/uL (0.0-0.8) 05/21/23 21:09 Baso # (Auto) 0.1 10^3/uL (0.0-0.1) 05/21/23 21:09 Nucleated RBC % (auto) 0 % 05/21/23 21:09 Nucleated RBCs # 0.0 /100WBC 05/21/23 21:09 Sodium 141 mmol/L (136-145) 05/21/23 21:09 Potassium 3.8 mmol/L (3.5-5.1) 05/21/23 21:09 Chloride 105 mmol/L (98-107) 05/21/23 21:09 Carbon Dioxide 22 mmol/L (22-29) 05/21/23 21:09 Anion Gap 17.8 (5-19) 05/21/23 21:09 BUN 13 mg/dL (6-20) 05/21/23 21:09 Creatinine 1.0 mg/dL (0.7-1.2) 05/21/23 21:09 GFR Calculation 85.0 mL/min (90-130) L 05/21/23 21:09 Glucose 134 mg/dL (65-115) H 05/21/23 21:09 Calculated Osmolality 294 mOsm/kg (285-295) 05/21/23 21:09 Calcium 9.8 mg/dL (8.5-10.5) 05/21/23 21:09 Total Bilirubin 0.4 mg/dL (0.15-1.2) 05/21/23 21:09 AST 28 U/L (0-40) 05/21/23 21:09 ALT 34 U/L (0-41) 05/21/23 21:09 Alkaline Phosphatase 74 U/L (40-130) 05/21/23 21:09 Troponin T Baseline 11 ng/L (0-15) 05/21/23 21:09 Total Protein 7.1 g/dL (6.6-8.7) 05/21/23 21:09 Albumin 4.5 g/dL (3.5-5.2) 05/21/23 21:09 Globulin 2.6 g/dL (1.3-4.6) 05/21/23 21:09 Lipase 31 U/L (13-60) 05/21/23 21:09 All radiology interpretation(s) finalized by discharge EKG Data EKG 1: I personally reviewed and interpreted this EKG as follows: EKG interpretation date: 05/21/23 EKG interpretation time: 20:53 Interpretation: nsr hr [address] or t wave abnormaliies qrs 94 qtc 403 Discharge Plan Discharge Patient Disposition: Home Clinical Impression: Chest pain Hypertension Qualifiers: Hypertension type: unspecified Qualified Code(s): I10 - Essential (primary) hypertension Condition: Stable Prescriptions: New Norvasc 10 mg tablet 10 mg PO DAILY Qty: 30 0RF No Action hydroxyzine HCl 25 mg tablet 25 mg PO QID PRN (Reason: anxiety) Qty: 14 0RF acetaminophen [Tylenol Ex Str Rapid Release] 500 mg Tablet 1,000 mg PO Q6H PRN (Reason: Pain) Discharge Orders: Discharge ED (Routine); Ordered 05/21/23 Ordered By: Mazin Kelly Referrals: Dawson Carvalho NP [Primary Care Provider] - 1-3 days Discharge Diet: Advance as tolerated Discharge Activity: Resume usual activity Patient Instructions: Hypertension (ED) Coding Level of Care Code ED Bus Driver/Monitor for Chg Alexander
[2023-05-21 21:34] LABS: Alanine Aminotransferase 34 U/L (0-41); Albumin Level 4.5 g/dL (3.5-5.2); Alkaline Phosphatase 74 U/L (40-130); Anion Gap 17.8 (5-19); Aspartate Amino Transferase 28 U/L (0-40); Blood Urea Nitrogen 13 mg/dL (6-20); Calcium 9.8 mg/dL (8.5-10.5); Carbon Dioxide 22 mmol/L (22-29); Chloride 105 mmol/L (98-107); Globulin 2.6 g/dL (1.3-4.6); Glucose 134 mg/dL (65-115); Lipase 31 U/L (13-60); Osmolality Calculated 294 mOsm/kg (285-295); Potassium 3.8 mmol/L (3.5-5.1); Sodium 141 mmol/L (136-145); Total Bilirubin 0.4 mg/dL (0.15-1.2); Total Protein 7.1 g/dL (6.6-8.7)
[2023-05-21 21:36] LABS: Troponin(5th) Baseline 11 ng/L (0-15)
[2023-05-21] MEDS: hyDRALAzine 20 mg/mL INJ 1 mL 10 MG IM (21:59)
[2023-05-21 22:07] VITALS: BP 141/87; PULSE 80; O2SAT 98
== END 2023-05-21 22:08 | disposition home or self-care (01) ==
PROVIDERS: Emergency Provider Emergency Medicine; PCP Nurse Practitioner Family
DX: R07.9 Chest pain, unspecified (principal); I10 Essential (primary) hypertension; F17.220 Nicotine dependence, chewing tobacco, uncomplicated
CPT/HCPCS: 36415; 71045; 80053; 83690; 84484; 85025; 93005; 96372; 99285; J0360

== ENCOUNTER 2023-05-28 09:03 | Emergency (ER) | payer BC, MEDICAID, SELFPAY ==
[2023-05-28 09:15] VITALS: BP 161/96; PULSE 87; RESP 18; TEMP 36.7; O2SAT 100
--- NOTE | 2023-05-28 09:20 | ECG_ITS ---
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 Measurements Intervals [place] Rate: 89 P: 69 [place]: 159 QRS: -3 QRSD: 97 T: 17 QT: 338 QTc: 411 Interpretive Statements SINUS RHYTHM Compared to ECG 05/21/2023 20:53:26 No significant changes Electronically Signed On 05-28-2023 11:44:42 CHUTE LOADER by Jose Alfredo Molina M.D. [email or web address] [email or web address]/store/NU/[id number] f
[2023-05-28 09:33] LABS: ABG PCO2 20.5 mmHg (35-45); Alveolar-Arterial Oxygen Gradi 1.1 mmHg (5-10); Arterial Blood Gas Hematocrit 54.8 % (42-52); Base Excess ABG 0.5 mmol/L (-2.0-2.0); Blood Gas Allen Test Pos; Blood Gas Operator Identificat WALCI; Blood Gas Sample Site Radial, left; Blood Gas Sample Type Arterial; Carboxyhemoglobin 0.9 %THgb (0.4-20.1); HCO3 ABG 19.4 mmol/L (22-26); HGB O2 Sat 98.9 % (95-100); Ionized Calcium Level - ABG 1.2 mmol/L (1.1-1.4); Methemoglobin 0.1 % (0.4-1.5); Oxygen Device ROOM AIR; Oxygen Saturation ABG 99.9; PO2 FiO2 Ratio Arterial Blood 0; Potassium Level - ABG 3.6 mmol/L (3.5-5.0); Total Hemoglobin 17.9 g/dL (14-18)
[2023-05-28 09:34] LABS: ABG PH Result 7.58 (7.35-7.45)
--- NOTE | 2023-05-28 09:58 | W.ED.CHESTPA ---
HPI - Chest Pain General: Chief Complaint: Chest Pain Stated Complaint: arm and hands numbness, chest discomfort Time Seen by Provider: 05/28/23 09:11 Source: patient Mode of arrival: ambulatory History of Present Illness: 37-year-old male has been emergency room multiple times in the last few months is complaining of chest discomfort shortness of breath rapid breathing numbness and tingling bilaterally in his upper and lower extremities this began while he was at work today. On arrival here triage nurse noted he was hyperventilating ABG done shortly after arrival does show respiratory alkalosis. Patient not having any chest pain or discomfort most of the other symptoms have resolved as well. Did multiple workups since September 2022 including a CTA of the chest several chest x-rays all of which have been been normal. He is initially started on lisinopril for blood pressure but then switched to amlodipine. He is complaining of stable orthostasis at times as well. MD complaint: chest pain Onset (ago): minute(s) Timing of current episode: episodic Pain radiation: none Severity: mild Relieving factors: nothing Exacerbating factors: nothing Associated symptoms: Deny abdominal pain, diaphoresis, dyspnea, fever(s), leg edema, nausea, palpitations, sense of impending doom, syncope or vomiting Treatment prior to arrival: none Review of Systems Const: Denies: fever(s), chills or diaphoresis Card: Denies: chest pain, palpitations or syncope Resp: Denies: dyspnea GI: Denies: abdominal pain, nausea or vomiting : Denies: dysuria, urinary frequency or urinary urgency Musc: Denies: neck pain or back pain Skin/Breast: Denies: rash [facility] ED PFSH: Medical History Decreased libido Erectile dysfunction Social History Smoking and tobacco/nicotine status: light tobacco/nicotine user smokeless tobacco Alcohol intake: current Alcohol intake frequency: few times a week Substance/Drug Use: unknown Adopted: Yes Caregiver/support person: No Lives independently: Yes Marital status: Single Current occupational status: employed Current gender identity: Male Physical Exam Const: COMMON NORMALS: no acute distress GENERAL APPEARANCE: cooperative and comfortable ORIENTATION/CONSCIOUSNESS: Yes awake, Yes oriented to person, Yes oriented to place and Yes oriented to time HENMT: COMMON NORMALS: normocephalic, atraumatic and hearing grossly normal bilaterally HEAD & SCALP: normocephalic and atraumatic Resp: COMMON NORMALS: normal respiratory effort, No retractions, No use of accessory muscles and clear to auscultation bilaterally AUSCULTATION: clear to auscultation bilaterally Cardio: COMMON NORMALS: regular rate, regular rhythm and No murmurs present (Cardio) RATE: regular rate RHYTHM: regular rhythm GI: COMMON NORMALS: Soft to palpation and No hepatosplenomegaly present AUSCULTATION: Yes normoactive bowel sounds PALPATION: Yes Soft to palpation, No Tenderness to palpation present (GI), No Guarding due to palpation present (GI) and Yes No hepatosplenomegaly present Extremity: COMMON NORMALS: normal to inspection, capillary refill normal, no clubbing, cyanosis or edema, no calf tenderness and no pedal edema Neuro: SENSORIUM/ORIENTATION: Yes oriented to person, Yes oriented to place and Yes oriented to time Skin: COMMON NORMALS: no rashes or lesions noted GENERAL SKIN EXAM: no rashes or lesions noted Course Vital Signs: Vital signs: Vital Signs Temperature 98.0 F 05/28/23 09:15 Pulse Rate 87 05/28/23 09:15 Respiratory Rate 18 05/28/23 09:15 Blood Pressure 161/96 05/28/23 09:15 Pulse Oximetry 100 05/28/23 09:15 Oxygen Delivery Me thod Room Air 05/28/23 09:15 MDM - Chest Pain Medical Decision Making 37-year-old male who presented to the emergency room multiple times with similar type complaints blood pressure poorly controlled was hyperventilating on arrival blood gas before this out. Cardiac enzymes and EKG unremarkable. Recommend he make the following changes to his antihypertensive regimen. Stop losartan and decrease his lisinopril to 10 mg daily decrease his amlodipine to 5 mg daily add propranolol 20 mg twice a day and stop hydrochlorothiazide recheck with his primary care doctor within the next week. Will also set him up for an outpatient stress test. Return if has further problems reviewed findings with the patient today. Additionally on a previous CT patient had a mention of a small hiatal hernia some this may be triggered by reflux we will start him on pantoprazole for now Medical Records I reviewed the patient's medical records. Lab Data I reviewed the patient's lab results. 05/28/23 10:12 05/28/23 10:12 Laboratory Results WBC 8.30 10^3/uL (3.29-11.43) 05/28/23 10:12 RBC 5.73 10^6/uL (3.85-5.65) H 05/28/23 10:12 Hgb 17.50 g/dL (11.27-16.99) H 05/28/23 10:12 Hct 49.2 % (37-53) 05/28/23 10:12 MCV 85.9 fl (82-101) 05/28/23 10:12 MCH 30.5 pg (27-33) 05/28/23 10:12 MCHC 35.6 g/dL (30-55) 05/28/23 10:12 RDW 12.8 % (12.1-15.1) 05/28/23 10:12 Plt Count 323 10^3/cmm (157-399) 05/28/23 10:12 MPV 8.4 fL (7.4-10.4) 05/28/23 10:12 Neut % (Auto) 61.0 % 05/28/23 10:12 Lymph % (Auto) 30.5 % 05/28/23 10:12 [place] % (Auto) 7.1 % 05/28/23 10:12 Eos % (Auto) 0.6 % 05/28/23 10:12 Baso % (Auto) 0.6 % 05/28/23 10:12 Neut # (Auto) 5.06 10^3/uL (1.8-7.7) 05/28/23 10:12 Lymph # (Auto) 2.5 10^3/uL (0.8-4.8) 05/28/23 10:12 [place] # (Auto) 0.6 10^3/uL (0.2-0.9) 05/28/23 10:12 Eos # (Auto) 0.1 10^3/uL (0.0-0.8) 05/28/23 10:12 Baso # (Auto) 0.1 10^3/uL (0.0-0.1) 05/28/23 10:12 Nucleated RBC % (auto) 0 % 05/28/23 10:12 Nucleated RBCs # 0.0 /100WBC 05/28/23 10:12 Specimen Type Arterial 05/28/23 09:22 Sample Site Radial, left 05/28/23 09:22 ABG pH 7.58 (7.35-7.45) H* 05/28/23 09:22 ABG pCO2 20.5 mmHg (35-45) L 05/28/23 09:22 ABG pO2 113.0 mmHg (80.0-100.0) H 05/28/23 09:22 ABG PO2/FiO2 Ratio 0 05/28/23 09:22 ABG HCO3 19.4 mmol/L (22-26) L 05/28/23 09:22 ABG O2 Saturation 99.9 05/28/23 09:22 ABG Base Excess 0.5 mmol/L (-2.0-2.0) 05/28/23 09:22 Horacio Test Pos 05/28/23 09:22 A-a O2 Gradient 1.1 mmHg (5-10) L 05/28/23 09:22 Hematocrit 54.8 % (42-52) H 05/28/23 09:22 Hgb O2 Saturation 98.9 % (95-100) 05/28/23 09:22 Carboxyhemoglobin 0.9 %THgb (0.4-20.1) 05/28/23 09:22 Methemoglobin 0.1 % (0.4-1.5) L 05/28/23 09:22 Total Hemoglobin 17.9 g/dL (14-18) 05/28/23 09:22 Sodium 138.0 mmol/L (131-143) 05/28/23 09:22 Potassium 3.6 mmol/L (3.5-5.0) 05/28/23 09:22 Glucose 120.0 mg/dL (70-115) H 05/28/23 09:22 Ionized Calcium 1.2 mmol/L (1.1-1.4) 05/28/23 09:22 O2 Delivery Device Room air 05/28/23 09:22 FiO2 21.0 % 05/28/23 09:22 Pump Rebuilder ID [place] 05/28/23 09:22 Sodium 137 mmol/L (136-145) 05/28/23 10:12 Potassium 4.1 mmol/L (3.5-5.1) 05/28/23 10:12 Chloride 100 mmol/L (98-107) 05/28/23 10:12 Carbon Dioxide 21 mmol/L (22-29) L 05/28/23 10:12 Anion Gap 20.1 (5-19) H 05/28/23 10:12 BUN 14 mg/dL (6-20) 05/28/23 10:12 Creatinine 1.0 mg/dL (0.7-1.2) 05/28/23 10:12 GFR Calculation 85.0 mL/min (90-130) L 05/28/23 10:12 Glucose 106 mg/dL (65-115) 05/28/23 10:12 Calculated Osmolality 285 mOsm/kg (285-295) 05/28/23 10:12 Calcium 10.6 mg/dL (8.5-10.5) H 05/28/23 10:12 Troponin T Baseline 13 ng/L (0-15) 05/28/23 10:12 All radiology interpretation(s) finalized by discharge Discharge Plan Discharge Patient Disposition: Home Clinical Impression: Hyperventilation, Atypical chest pain, Benign essential HTN Condition: Stable Prescriptions: New amlodipine 5 mg tablet 5 mg PO DAILY Qty: 30 0RF propranolol 20 mg tablet 20 mg PO BID Qty: 60 0RF pantoprazole 40 mg tablet,delayed release (DR/EC) 40 mg PO DAILY Qty: 30 0RF Discontinued losartan 25 mg tablet 25 mg PO DAILY lisinopril 5 mg tablet 5 mg PO DAILY hydrochlorothiazide 12.5 mg tablet 12.5 mg PO DAILY No Action citalopram 20 mg tablet See Rx Instructions .ROUTE .COMPLEX Rx Instructions: Take 1/2 tablet by mouth once daily x 6 days, then 1 tab po daily lisinopril 10 mg tablet 10 mg PO DAILY acetaminophen [Tylenol Ex Str Rapid Release] 500 mg Tablet 1,000 mg PO Q6H PRN (Reason: Pain) Discharge Orders: Discharge ED (Routine); Ordered 05/28/23 Ordered By: Delfino Encarnacion Referrals: Dawson Carvalho NP [Primary Care Provider] - Discharge Diet: Usual diet Discharge Activity: Increase activity as tolerated Patient Instructions: Opioid Safety, Pain Management Activity Restrictions/Additional Instructions: Thank you for choosing [facility] for your healthcare needs today. Please realize this is an emergency room and that we are providing you with a medical screening exam and this may not be complete and all inclusive of all the testing and or work up that you may need to determine your ailment or severity of your illness. It is very important that you follow up as instructed or that you return to the Emergency Department should you have concerns or if your condition changes or worsens in any way. You are seen today for atypical chest pain. Cardiac enzymes and EKG were negative. Your blood gas showed evidence of hyperventilation. Recommend that you stop hydrochlorothiazide lisinopril 5mg (continue the 10 mg daily of lisinopril) and losartan. Follow-up with primary care doctor within the week to reevaluate blood pressure. Case management will have a appointment for you for graded exercise stress test. Coding Level of Care Code ED Small Machine Bindery Operator for Yahir Munoz
[2023-05-28 10:21] LABS: Basophils # 0.1 10^3/uL (0.0-0.1); Basophils % 0.6 %; Eosinophils # 0.1 10^3/uL (0.0-0.8); Eosinophils % 0.6 %; Hematocrit 49.2 % (37-53); Lymphocytes # 2.5 10^3/uL (0.8-4.8); Lymphocytes % 30.5 %; Mean Corpuscular HGB Conc 35.6 g/dL (30-55); Mean Corpuscular Hemoglobin 30.5 pg (27-33); Mean Corpuscular Volume 85.9 fl (82-101); Mean Platelet Volume 8.4 fL (7.4-10.4); Monocytes # 0.6 10^3/uL (0.2-0.9); Monocytes % 7.1 %; Neutrophils # 5.06 10^3/uL (1.8-7.7); Nucleated Red Blood Cells % 0 %; Platelet Count 323 10^3/cmm (157-399); Red Blood Count 5.73 10^6/uL (3.85-5.65); Red Cell Distribution Width 12.8 % (12.1-15.1)
--- NOTE | 2023-05-28 10:24 | PC.NURSE ---
Pulled the first order of propanolol and I accidentally dropped the pill on the ground in the room. I had to waste the pill and re-order the propanolol to give to the patient.
--- NOTE | 2023-05-28 10:31 | PC.PHAR ---
PT STATES PREVIOUSLY TOOK LISINOPRIL 5 MG DAILY FOR SEVERAL MONTHS WITH SOME HEART FLUTTER AND NO OTHER ISSUES. LISINOPRIL 10 MG SEEMS TOO STRONG, HYDROCHLOROTHIAZIDE 12.5 SEEMS TOO STRONG, AND LOSARTAN 25 MG WAS NEVER PICKED UP. STATES HE WOULD LIKE TO GO BACK TO 5 MG DOSAGE OR LOWER. PT NOT TAKING AMLODIPINE 10 MG. 05/28/23
[2023-05-28 10:39] LABS: Anion Gap 20.1 (5-19); Blood Urea Nitrogen 14 mg/dL (6-20); Calcium 10.6 mg/dL (8.5-10.5); Carbon Dioxide 21 mmol/L (22-29); Chloride 100 mmol/L (98-107); Glucose 106 mg/dL (65-115); Osmolality Calculated 285 mOsm/kg (285-295); Potassium 4.1 mmol/L (3.5-5.1); Sodium 137 mmol/L (136-145)
[2023-05-28 10:40] LABS: Troponin(5th) Baseline 13 ng/L (0-15)
[2023-05-28] MEDS: propranolol 20 mg Tablet PO (10:50)
--- NOTE | 2023-06-01 09:56 | DCPLANNER ---
Message was sent to cardiology on 06/01/23 at 0956. Clinic to contact patient.
== END 2023-05-28 12:05 | disposition home or self-care (01) ==
PROVIDERS: Emergency Provider Family Medicine; PCP Nurse Practitioner Family
DX: R07.89 Other chest pain (principal); I10 Essential (primary) hypertension; R06.4 Hyperventilation; F17.220 Nicotine dependence, chewing tobacco, uncomplicated
CPT/HCPCS: 36600; 80048; 80051; 82330; 82805; 84484; 85025; 93005; 99284

== ENCOUNTER → 2023-07-26 14:28 | Outpatient (BNVA) | payer BC, MEDICAID, SELFPAY | PROVIDERS: PCP Nurse Practitioner Family; Referring Provider Family Medicine; Visit Provider Internal Medicine | DX: R07.9 Chest pain, unspecified (principal); I10 Essential (primary) hypertension; F17.200 Nicotine dependence, unspecified, uncomplicated | CPT/HCPCS: 93005 ==

== ENCOUNTER 2023-08-10 08:34 | Outpatient (CLI) | payer BC, MEDICAID, SELFPAY ==
--- NOTE | 2023-08-10 | ECG_ITS ---
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
[2023-08-10 09:30] VITALS: BMI 34.8
[2023-08-10 09:53] VITALS: BP 147/102; PULSE 113
== END 2023-08-10 08:35 | disposition home or self-care (01) ==
LOC: CDL 08:35
PROVIDERS: PCP Nurse Practitioner Family; Visit Provider Internal Medicine
DX: R07.9 Chest pain, unspecified (principal); R06.02 Shortness of breath
CPT/HCPCS: 93017; 93306

== ENCOUNTER 2024-09-05 17:41 | Emergency (ER) | payer BC, MEDICAID, SELFPAY ==
[2024-09-05 17:51] VITALS: BP 147/99; PULSE 82; RESP 18; TEMP 36.7; O2SAT 100
--- NOTE | 2024-09-05 17:56 | ECG_ITS ---
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 Measurements Intervals [place] Rate: 96 P: 71 [place]: 159 QRS: 27 QRSD: 97 T: 29 QT: 332 QTc: 421 Interpretive Statements SINUS RHYTHM Compared to ECG 07/26/2023 14:35:36 No significant change Electronically Signed On 09-06-2024 11:56:36 CDT by Gianna Fiore M.D. [id number] [id number]
--- NOTE | 2024-09-05 18:54 | XRR_ITS ---
PROCEDURE INFORMATION: Exam: XR Chest Exam date and time: 09/05/2024 7:06 PM Age: 38 years old Clinical indication: Chest pressure; C/O chest pain; Additional info: Cp TECHNIQUE: Imaging protocol: Radiologic exam of the chest. Views: 1 view. COMPARISON: CR XR chest 1V portable [id number] 05/21/2023 8:53 PM FINDINGS: Lungs: Unremarkable. No consolidation. Pleural spaces: Unremarkable. No pleural effusion. No pneumothorax. Heart/Mediastinum: Unremarkable. No cardiomegaly. Bones/joints: Unremarkable. XR/XR chest 1V portable [id number] IMPRESSION: No acute findings.
[2024-09-05 19:12] LABS: Basophils # 0.1 10^3/uL (0.0-0.1); Basophils % 0.6 %; Eosinophils % 0.3 %; Hematocrit 44.5 % (37-53); Lymphocytes % 20.9 %; Mean Corpuscular HGB Conc 34.4 g/dL (30-55); Mean Corpuscular Hemoglobin 30.7 pg (27-33); Mean Corpuscular Volume 89.4 fl (82-101); Mean Platelet Volume 8.5 fL (7.4-10.4); Monocytes # 0.7 10^3/uL (0.2-0.9); Monocytes % 7.5 %; Neutrophils # 6.76 10^3/uL (1.8-7.7); Neutrophils % 70.4 %; Nucleated Red Blood Cells % 0 %; Platelet Count 265 10^3/cmm (157-399); Red Blood Count 4.98 10^6/uL (3.85-5.65); Red Cell Distribution Width 13.1 % (12.1-15.1); White Blood Count 9.61 10^3/uL (3.29-11.43)
[2024-09-05 19:30] LABS: Troponin(5th) Baseline 9 ng/L (0-15)
[2024-09-05 19:33] LABS: Blood Urea Nitrogen 17 mg/dL (6-20); Calcium 9.9 mg/dL (8.5-10.5); Carbon Dioxide 20 mmol/L (22-29); Chloride 103 mmol/L (98-107); Creatinine Clr Calc Pharmacy 130.7788; Glomerular Filtration Rate 84.5 mL/min (90-130); Glucose 104 mg/dL (65-115); Osmolality Calculated 292 mOsm/kg (285-295); Sodium 140 mmol/L (136-145)
[2024-09-05 20:38] VITALS: BP 152/102; PULSE 79; RESP 16; O2SAT 99
--- NOTE | 2024-09-05 20:42 | ED_ITS ---
HPI - Chest Pain 2 General: Chief Complaint: Chest Pain Stated Complaint: chest pain Time Seen by Provider: 09/05/24 20:31 History of Present Illness: Tang Hogue presents to the emergency department with chest pain and near- syncopal episodes that occurred earlier today. He reports experiencing chest pain accompanied by what he describes as shocks to his chest. With each shock, he felt as though he was almost passing out, though he did not lose consciousness. He states he caught himself but nearly passed out the first time it happened today. The patient mentions feeling like he was fixing to go into a panic attack after the first episode, but notes he has had panic attacks before and was not particularly concerned about that aspect. He denies any nausea, vomiting, constipation, diarrhea, pain with urination, fevers, or chills. The patient reports a history of previous visits to the emergency department for chest pain. He also mentions having seen a director of in service education in the past, who performed a stress test and an echocardiogram. Additionally, he wore a 24-hour heart monitor at some point, though it's unclear if any significant findings were noted during that time. The patient is currently taking blood pressure medication, though his blood pressure remains elevated at 152/102 during this visit. He denies any history of heart surgeries, stents, murmurs, or implantable devices in his chest. Related Data Home Medications ?Medication ?Instructions ?Recorded ?Confirmed acetaminophen 500 mg tablet 1,000 mg PO Q6H PRN Pain 0 10/25/22 07/26/23 lisinopril 20 mg tablet 20 mg PO DAILY 07/26/2308/14 nitroglycerin 0.4 mg sublingual 0.4 mg sublingual Q5M PRN 07/26/23 07/26/23 tablet (Nitrostat) propranolol 20 mg tablet 20 mg PO DAILY 07/26/2308/14 Previous Rx's ?Medication ?Instructions ?Recorded pantoprazole 40 mg tablet,delayed 40 mg PO DAILY #30 t abs 05/28/23 release Allergies Allergy/AdvReac Type Severity Reaction Status Date / Time No Known Allergies Allergy Verified 09/05/24 17:57 Review of Systems 2 General: Reports: 10 or more systems reviewed and unremarkable except in HPI and below PFSH ED 2 PFSH: Medical History (Updated 09/05/24 @ 21:38 by Derrek Damon DO) Psychiatric care Decreased libido Erectile dysfunction Social History Smoking and tobacco/nicotine status: light tobacco/nicotine user smokeless tobacco Alcohol intake: current Alcohol intake frequency: few times a week Substance/Drug Use: unknown Adopted: Yes Caregiver/support person: No Lives independently: Yes Marital status: Single Current occupational status: employed Current gender identity: Male Physical Exam 2 Const: COMMON NORMALS: no acute distress, patient oriented x3, healthy appearing, alert and well nourished HENMT: COMMON NORMALS: normocephalic HEAD & SCALP: normocephalic Eye: COMMON NORMALS: EOMs intact bilaterally Neck/C-Spine: COMMON NORMALS: full ROM and supple Resp: COMMON NORMALS: normal respiratory effort, No retractions and clear to auscultation bilaterally AUSCULTATION: clear to auscultation bilaterally Cardio: COMMON NORMALS: regular rate, regular rhythm, No gallops present (Cardio) and No murmurs present (Cardio) RATE: regular rate RHYTHM: r egular rhythm GI: COMMON NORMALS: Soft to palpation and non-tender PALPATION: Yes Soft to palpation Extremity: GENERAL: Yes normal exam except as noted Neuro: COMMON NORMALS: patient oriented x3 SENSORIUM/ORIENTATION: Yes alert Skin: COMMON NORMALS: no rashes or lesions noted GENERAL SKIN EXAM: no rashes or lesions noted Course 2 Vital Signs: Vital signs: Vital Signs Temperature 98.0 F 09/05/24 17:51 Pulse Rate 73 09/05/24 21:06 Respiratory Rate 16 09/05/24 21:06 Blood Pressure 127/86 09/05/24 21:06 Pulse Oximetry 95 09/05/24 21:06 Oxygen Delivery Me thod Room Air 09/05/24 17:51 MDM - Chest Pain Medical Decision Making 1. Chest pain with near-syncope: Patient reports experiencing chest pain with associated shocks to the chest earlier today, accompanied by near-syncope episodes. No loss of consciousness occurred, but the patient felt dizzy and almost passed out during the first episode. The patient has a history of previous chest pain evaluations. Initial workup in the emergency department, including EKG and troponin x 2, was normal. The patient denies any known heart history, implantable cardiac devices, or associated symptoms such as nausea, vomiting, shortness of breath, or fever. The patient reports feeling like they were fixing to go into a panic attack after the first episode. Given the normal initial workup, acute myocardial infarction is less likely, but cardiac arrhythmia remains a possibility. - Recommend follow-up with director of in service education for further evaluation, possibly including Holter monitor 2. Hypertension: Patient's blood pressure is elevated at 152/102 mmHg despite being on antihypertensive medication. This indicates suboptimal blood pressure control on current regimen. - Recommend follow-up with primary care provider for medication adjustment Return precautions were discussed and the patient was discharged home in stable condition. Lab Data 09/05/24 19:06 09/05/24 19:06 Radiology Impressions Chest X-Ray 09/05/24 18:54 IMPRESSION: No acute findings. Laboratory Results WBC 9.61 10^3/uL (3.29-11.43) 09/05/24 19:06 RBC 4.98 10^6/uL (3.85-5.65) 09/05/24 19:06 Hgb 15.30 g/dL (11.27-16.99) 09/05/24 19:06 Hct 44.5 % (37-53) 09/05/24 19:06 MCV 89.4 fl (82-101) 09/05/24 19:06 MCH 30.7 pg (27-33) 09/05/24 19:06 MCHC 34.4 g/dL (30-55) 09/05/24 19:06 RDW 13.1 % (12.1-15.1) 09/05/24 19:06 Plt Count 265 10^3/cmm (157-399) 09/05/24 19:06 MPV 8.5 fL (7.4-10.4) 09/05/24 19:06 Neut % (Auto) 70.4 % 09/05/24 19:06 Lymph % (Auto) 20.9 % 09/05/24 19:06 [place] % (Auto) 7.5 % 09/05/24 19:06 Eos % (Auto) 0.3 % 09/05/24 19:06 Baso % (Auto) 0.6 % 09/05/24 19:06 Neut # (Auto) 6.76 10^3/uL (1.8-7.7) 09/05/24 19:06 Lymph # (Auto) 2.0 10^3/uL (0.8-4.8) 09/05/24 19:06 [place] # (Auto) 0.7 10^3/uL (0.2-0.9) 09/05/24 19:06 Eos # (Auto) 0.0 10^3/uL (0.0-0.8) 09/05/24 19:06 Baso # (Auto) 0.1 10^3/uL (0.0-0.1) 09/05/24 19:06 Nucleated RBC % (auto) 0 % 09/05/24 19:06 Nucleated RBCs # 0.0 /100WBC 09/05/24 19:06 Sodium 140 mmol/L (136-145) 09/05/24 19:06 Potassium 4.0 mmol/L (3.5-5.1) 09/05/24 19:06 Chloride 103 mmol/L (98-107) 09/05/24 19:06 Carbon Dioxide 20 mmol/L (22-29) L 09/05/24 19:06 Anion Gap 21.0 (5-19) H 09/05/24 19:06 BUN 17 mg/dL (6-20) 09/05/24 19:06 Creatinine 1.0 mg/dL (0.7-1.2) 09/05/24 19:06 GFR Calculation 84.5 mL/min (90-130) L 09/05/24 19:06 Glucose 104 mg/dL (65-115) 09/05/24 19:06 Calculated Osmolality 292 mOsm/kg (285-295) 09/05/24 19:06 Calcium 9.9 mg/dL (8.5-10.5) 09/05/24 19:06 Troponin T Baseline 9 ng/L (0-15) 09/05/24 19:06 Troponin T 120 Minute 10.70 ng/L (0-15) 09/05/24 20:57 Delta Troponin T 1.70 ABS# (0-10) 09/05/24 20:57 All radiology interpretation(s) finalized by discharge EKG Data EKG 1: Computer generated interpretation: Normal sinus rhythm with a rate of 96, NH interval 159, QRS duration of 97, QTc 386, no ST segment elevation or depression, no signs of early repull EKG 2: Prior EKG tracings: available for review Interpretation: Normal sinus rhythm with a rate of 72, NH interval 187, QRS duration 94, QTc 398, no ST segment elevation or depression very similar to previous EKG Discharge Plan Discharge Patient Disposition: Home Clinical Impression: Chest pain Condition: Stable Prescriptions: No Action propranolol 20 mg tablet 20 mg PO DAILY lisinopril 20 mg tablet 20 mg PO DAILY nitroglycerin [Nitrostat] 0.4 mg tablet, sublingual 0.4 mg sublingual Q5M PRN Rx Instructions: do not exceed 3 doses per episode pantoprazole 40 mg tablet,delayed release (DR/EC) 40 mg PO DAILY Qty: 30 0RF acetaminophen [Tylenol Ex Str Rapid Release] 500 mg Tablet 1,000 mg PO Q6H PRN (Reason: Pain) Discharge Orders: Discharge ED (Routine); Ordered 09/05/24 Ordered By: Derrek Law Referrals: Dawson Carvalho, FIELD SUPERINTENDENT [Primary Care Provider, Nurse Practitioner] Discharge Diet: Advance as tolerated Discharge Activity: Increase activity as tolerated Patient Instructions: Opioid Safety, Pain Management Activity Restrictions/Additional Instructions: Please return to the emergency department any new or worsening symptoms. Please follow with your primary care doctor for persistent symptoms. Follow-up with your director of in service education as we discussed. 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
--- NOTE | 2024-09-05 20:47 | ECG_ITS ---
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 Measurements Intervals [place] Rate: 72 P: 50 MD: 187 QRS: 24 QRSD: 94 T: 15 QT: 374 QTc: 410 Interpretive Statements SINUS RHYTHM Compared to ECG 09/05/2024 17:45:28 No significant changes Electronically Signed On 09-06-2024 12:13:40 CDT by Gianna Fiore M.D. [id number] [id number]
[2024-09-05 21:06] VITALS: BP 127/86; PULSE 73; RESP 16; O2SAT 95
[2024-09-05 21:46] VITALS: BP 134/74; PULSE 78; RESP 16; O2SAT 95
== END 2024-09-05 21:56 | disposition home or self-care (01) ==
PROVIDERS: Emergency Medicine; Emergency Provider General Practice; PCP Nurse Practitioner Family
DX: R07.9 Chest pain, unspecified (principal); Z72.0 Tobacco use
CPT/HCPCS: 36415; 71045; 80048; 84484; 85025; 93005; 99285

== ENCOUNTER 2024-12-31 18:32 | Emergency (ER) | payer BC, MEDICAID, SELFPAY ==
[2024-12-31 18:40] VITALS: BP 150/101; PULSE 69; RESP 14; TEMP 36.7; O2SAT 98
--- NOTE | 2024-12-31 18:47 | ECG_ITS ---
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 Measurements Intervals [place] Rate: 66 P: 61 MT: 179 QRS: -12 QRSD: 102 T: 14 QT: 366 QTc: 386 Interpretive Statements SINUS RHYTHM WITH MARKED SINUS ARRHYTHMIA Compared to ECG 09/05/2024 20:47:14 No significant changes Electronically Signed On 12-31-2024 22:28:54 CDT by Brad Merchant M.D. [id number]
[2024-12-31 19:26] LABS: Hematocrit 45.1 % (37-53); Hemoglobin 15.50 g/dL (11.27-16.99); Mean Corpuscular HGB Conc 34.4 g/dL (30-55); Mean Corpuscular Hemoglobin 30.7 pg (27-33); Mean Corpuscular Volume 89.3 fl (82-101); Nucleated Red Blood Cells % 0 %; Platelet Count 293 10^3/cmm (157-399); Red Blood Count 5.05 10^6/uL (3.85-5.65); White Blood Count 10.94 10^3/uL (3.29-11.43)
[2024-12-31 19:48] LABS: Troponin(5th) Baseline 7 ng/L (0-15)
[2024-12-31 19:56] LABS: Alanine Aminotransferase 45 U/L (0-41); Albumin Level 4.7 g/dL (3.5-5.2); Alkaline Phosphatase 86 U/L (40-130); Blood Urea Nitrogen 17 mg/dL (6-20); Calcium 9.6 mg/dL (8.5-10.5); Carbon Dioxide 24 mmol/L (22-29); Chloride 103 mmol/L (98-107); Creatinine Clr Calc Pharmacy 117.7467; Globulin 2.8 g/dL (1.3-4.6); Glucose 85 mg/dL (65-115); NT Pro B Type Natriuretic Pept < 36 pg/mL (0-125); Osmolality Calculated 289 mOsm/kg (285-295); Sodium 139 mmol/L (136-145); Total Protein 7.5 g/dL (6.6-8.7)
[2024-12-31 19:59] LABS: Anion Gap 16.3 (5-19); Potassium 4.3 mmol/L (3.5-5.1)
[2024-12-31 20:00] LABS: Aspartate Amino Transferase 36 U/L (0-40)
--- NOTE | 2024-12-31 20:03 | XRR_ITS ---
PROCEDURE INFORMATION: Exam: XR Chest Exam date and time: 12/31/2024 8:12 PM Age: 39 years old Clinical indication: Chest wall pain; Additional info: Cp TECHNIQUE: Imaging protocol: Radiologic exam of the chest. Views: 1 view. COMPARISON: CR XR chest 1V portable [id number] 09/05/2024 7:06 PM FINDINGS: Lungs: Unremarkable. No consolidation. Pleural spaces: Unremarkable. No pleural effusion. No pneumothorax. Heart/Mediastinum: Unremarkable. No cardiomegaly. Bones/joints: Unremarkable. XR/XR chest 1V portable [id number] IMPRESSION: No acute findings.
--- NOTE | 2024-12-31 20:07 | CTR_ITS ---
PROCEDURE INFORMATION: Exam: CT Head Without Contrast Exam date and time: 12/31/2024 8:15 PM Age: 39 years old Clinical indication: Syncope and collapse; Additional info: Dizzy/near syncope TECHNIQUE: Imaging protocol: Computed tomography of the head without contrast. Radiation optimization: All CT scans at this facility use at least one of these dose optimization techniques: automated exposure control; mA and/or kV adjustment per patient size (includes targeted exams where dose is matched to clinical indication); or iterative reconstruction. COMPARISON: CR XR cervical spine 3V* [id number] 11/16/2022 5:41 PM RADIATION DOSE METRICS: Total DLP (mGy-cm): 1118.78 FINDINGS: Brain: No acute intracranial hemorrhage. There is an area of hypodensity involving the right medial temporal lobe which could represent an area of chronic infarction/encephalomalacia or edema. An underlying mass lesion could not be entirely excluded. Cerebral ventricles: No hydrocephalus. Paranasal sinuses: Paranasal sinuses are grossly clear. Mastoid air cells: Mastoid air cells are grossly clear. Bones: Calvarium appears intact. Soft tissues: Unremarkable. CT/CT head wo con* [id number] IMPRESSION: Medial right temporal lobe hypodensity which could reflect encephalomalacia/chronic infarction or edema. If the latter, an underlying mass lesion would be a consideration. Contrast-enhanced MRI would provide more definitive characterization.
--- NOTE | 2024-12-31 20:08 | ED_ITS ---
HPI - Chest Pain 2 General: Chief Complaint: Chest Pain Stated Complaint: Chest Pain Time Seen by Provider: 12/31/24 19:26 Source: patient Mode of arrival: ambulatory Limitations: no limitations History of Present Illness: 39-year-old male states that today at 13 0 and had a near syncopal event. States he felt lightheaded had some dizziness almost some mild chest pains. He states his symptoms since resolved he feels much improved. States has had these events in the past has been seen here for it. He denies actually passing out. Associated symptoms: Deny abdominal pain, dyspnea, fever(s), nausea or vomiting Related Data Home Medications ?Medication ?Instructions ?Recorded ?Confirmed acetaminophen 500 mg tablet 1,000 mg PO Q6H PRN Pain 0 10/25/22 07/26/23 lisinopril 20 mg tablet 20 mg PO DAILY 07/26/2308/14 nitroglycerin 0.4 mg sublingual 0.4 mg sublingual Q5M PRN 07/26/23 07/26/23 tablet (Nitrostat) propranolol 20 mg tablet 20 mg PO DAILY 07/26/2308/14 Previous Rx's ?Medication ?Instructions ?Recorded pantoprazole 40 mg tablet,delayed 40 mg PO DAILY #30 t abs 05/28/23 release Allergies Allergy/AdvReac Type Severity Reaction Status Date / Time No Known Allergies Allergy Verified 12/31/24 18:44 Review of Systems 2 Const: Denies: fever(s), chills, body aches or change in appetite Eyes: Denies: blurry vision or eye discomfort ENMT: Denies: throat pain or dental pain Card: Reports: chest pain and pre-syncope Resp: Denies: dyspnea GI: Denies: abdominal pain, nausea, vomiting or diarrhea Musc: Denies: neck pain or back pain Skin/Breast: Denies: rash Neuro: Reports: dizziness; Denies: headache(s) PFSH ED 2 PFSH: Medical History Decreased libido Erectile dysfunction Social History Smoking and tobacco/nicotine status: light tobacco/nicotine user smokeless tobacco Alcohol intake: current Alcohol intake frequency: few times a week Substance/Drug Use: unknown Adopted: Yes Caregiver/support person: No Lives independently: Yes Marital status: Single Current occupational status: employed Current gender identity: Male Physical Exam 2 Const: COMMON NORMALS: no acute distress, patient oriented x3 and healthy appearing HENMT: COMMON NORMALS: normocephalic and atraumatic HEAD & SCALP: n ormocephalic and atraumatic Eye: COMMON NORMALS: conjunctivae normal CONJUNCTIVA: Yes conjunctivae normal Neck/C-Spine: COMMON NORMALS: full ROM and supple Chest: COMMONS NORMALS: normal inspection of the chest Resp: COMMON NORMALS: normal respiratory effort, No retractions, No use of accessory muscles and clear to auscultation bilaterally AUSCULTATION: clear to auscultation bilaterally Cardio: COMMON NORMALS: regular rate, regular rhythm and No murmurs present (Cardio) RATE: regular rate RHYTHM: regular rhythm Extremity: COMMON NORMALS: normal to inspection and full ROM Neuro: COMMON NORMALS: patient oriented x3, moves all extremities and no focal motor deficits Psych: COMMON NORMALS: mental status grossly normal, Normal thought process present and cooperative THOUGHT PROCESS: Normal thought process present Skin: COMMON NORMALS: no rashes or lesions noted and no wounds GENERAL SKIN EXAM: no rashes or lesions noted Course 2 Vital Signs: Vital signs: Vital Signs Temperature 98.0 F 12/31/24 18:40 Pulse Rate 70 12/31/24 20:45 Respiratory Rate 14 12/31/24 18:40 Blood Pressure 129/80 12/31/24 20:45 Pulse Oximetry 97 12/31/24 20:45 Oxygen Delivery Me thod Room Air 12/31/24 20:45 MDM - Chest Pain Medical Decision Making Patient presents here after nail syncopal event he had some slight dizziness as well he said this been going on for some time CT does show hypodensity he has no signs of stroke informed him he needs to follow-up with PCP to get an outpatient MRI he understands his return if worsening he understands agrees to plan. Medical Records I reviewed the patient's medical records. Lab Data I reviewed the patient's lab results. 12/31/24 19:11 12/31/24 19:11 Radiology Impressions Chest X-Ray 12/31/24 20:03 IMPRESSION: No acute findings. Head CT 12/31/24 20:07 IMPRESSION: Medial right temporal lobe hypodensity which could reflect encephalomalacia/chronic infarction or edema. If the latter, an underlying mass lesion would be a consideration. Contrast-enhanced MRI would provide more definitive characterization. ADDENDUM: 12/31/242121 THIS REPORT CONTAINS FINDINGS THAT MAY BE CRITICAL TO PATIENT CARE. The findings were verbally communicated via telephone conference with SOL DELGADO at 9:21 PM CDT on 12/31/2024. The findings were acknowledged and understood. Laboratory Results WBC 10.94 10^3/uL (3.29-11.43) 12/31/24 19:11 RBC 5.05 10^6/uL (3.85-5.65) 12/31/24 19:11 Hgb 15.50 g/dL (11.27-16.99) 12/31/24 19:11 Hct 45.1 % (37-53) 12/31/24 19:11 MCV 89.3 fl (82-101) 12/31/24 19:11 MCH 30.7 pg (27-33) 12/31/24 19:11 MCHC 34.4 g/dL (30-55) 12/31/24 19:11 RDW 13.4 % (12.1-15.1) 12/31/24 19:11 Plt Count 293 10^3/cmm (157-399) 12/31/24 19:11 MPV 8.7 fL (7.4-10.4) 12/31/24 19:11 Neut % (Auto) 52.2 % 12/31/24 19:11 Lymph % (Auto) 36.1 % 12/31/24 19:11 [place] % (Auto) 9.1 % 12/31/24 19:11 Eos % (Auto) 1.6 % 12/31/24 19:11 Baso % (Auto) 0.5 % 12/31/24 19:11 Neut # (Auto) 5.71 10^3/uL (1.8-7.7) 12/31/24 19:11 Lymph # (Auto) 4.0 10^3/uL (0.8-4.8) 12/31/24 19:11 [place] # (Auto) 1.0 10^3/uL (0.2-0.9) H 12/31/24 19:11 Eos # (Auto) 0.2 10^3/uL (0.0-0.8) 12/31/24 19:11 Baso # (Auto) 0.1 10^3/uL (0.0-0.1) 12/31/24 19:11 Nucleated RBC % (auto) 0 % 12/31/24 19:11 Nucleated RBCs # 0.0 /100WBC 12/31/24 19:11 Sodium 139 mmol/L (136-145) 12/31/24 19:11 Potassium 4.3 mmol/L (3.5-5.1) 12/31/24 19:11 Chloride 103 mmol/L (98-107) 12/31/24 19:11 Carbon Dioxide 24 mmol/L (22-29) 12/31/24 19:11 Anion Gap 16.3 (5-19) 12/31/24 19:11 BUN 17 mg/dL (6-20) 12/31/24 19:11 Creatinine 1.1 mg/dL (0.7-1.2) 12/31/24 19:11 GFR Calculation 75.3 mL/min (90-130) L 12/31/24 19:11 Glucose 85 mg/dL (65-115) 12/31/24 19:11 Calculated Osmolality 289 mOsm/kg (285-295) 12/31/24 19:11 Calcium 9.6 mg/dL (8.5-10.5) 12/31/24 19:11 Total Bilirubin 0.3 mg/dL (0.15-1.2) 12/31/24 19:11 AST 36 U/L (0-40) 12/31/24 19:11 ALT 45 U/L (0-41) H 12/31/24 19:11 Alkaline Phosphatase 86 U/L (40-130) 12/31/24 19:11 Troponin T Baseline 7 ng/L (0-15) 12/31/24 19:11 Troponin T 120 Minute 7.63 ng/L (0-15) 12/31/24 20:56 Delta Troponin T 0.63 ABS# (0-10) 12/31/24 20:56 NT-Pro-B Natriuret Pep < 36 pg/mL (0-125) 12/31/24 19:11 Total Protein 7.5 g/dL (6.6-8.7) 12/31/24 19:11 Albumin 4.7 g/dL (3.5-5.2) 12/31/24 19:11 Globulin 2.8 g/dL (1.3-4.6) 12/31/24 19:11 All radiology interpretation(s) finalized by discharge EKG Data EKG 1: I personally reviewed and interpreted this EKG as follows: EKG interpretation date: 12/31/24 EKG interpretation time: 18:37 Interpretation: nsr hr [address] elevation qrs 102 qtc 380 Discharge Plan Discharge Patient Disposition: Home Clinical Impression: Near syncope Condition: Stable Prescriptions: No Action propranolol 20 mg tablet 20 mg PO DAILY lisinopril 20 mg tablet 20 mg PO DAILY nitroglycerin [Nitrostat] 0.4 mg tablet, sublingual 0.4 mg sublingual Q5M PRN Rx Instructions: do not exceed 3 doses per episode pantoprazole 40 mg tablet,delayed release (DR/EC) 40 mg PO DAILY Qty: 30 0RF acetaminophen [Tylenol Ex Str Rapid Release] 500 mg Tablet 1,000 mg PO Q6H PRN (Reason: Pain) Discharge Orders: Discharge ED (Routine); Ordered 12/31/24 Ordered By: Sol Kelly Referrals: Dawson Carvalho NP [Primary Care Provider, Nurse Practitioner] - 4-7 days Discharge Diet: Advance as tolerated Discharge Activity: Resume usual activity Patient Instructions: Near Syncope (ED) Print Language: Slovenian Coding Level of Care Code 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
--- NOTE | 2024-12-31 20:44 | ECG_ITS ---
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
[2024-12-31 20:45] VITALS: BP 129/80; PULSE 70; O2SAT 97
[2024-12-31 21:30] LABS: Troponin 5 2HR 7.63 ng/L (0-15); Troponin 5 2HR Delta 0.63 ABS# (0-10)
[2024-12-31 21:55] VITALS: BP 135/87; PULSE 80; O2SAT 97
== END 2024-12-31 22:00 | disposition home or self-care (01) ==
PROVIDERS: Emergency Medicine; Emergency Provider Emergency Medicine; PCP Nurse Practitioner Family
DX: R55 Syncope and collapse (principal); F17.290 Nicotine dependence, other tobacco product, uncomplicated
CPT/HCPCS: 36415; 70450; 71045; 80053; 83880; 84484; 85025; 93005; 99285

== ENCOUNTER 2025-01-22 13:21 | Emergency (ER) | payer BC, MEDICAID, SELFPAY ==
[2025-01-22 14:00] VITALS: BP 150/96; PULSE 83; RESP 18; TEMP 36.6; O2SAT 100; BMI 34.2
--- NOTE | 2025-01-22 14:08 | ECG_ITS ---
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 Measurements Intervals [place] Rate: 80 P: 80 IA: 166 QRS: -10 QRSD: 98 T: 18 QT: 328 QTc: 379 Interpretive Statements SINUS RHYTHM WITH SINUS ARRHYTHMIA Compared to ECG 12/31/2024 20:44:16 No significant changes Electronically Signed On 01-22-2025 17:12:09 CDT by Chica Alvarado M.D. [email or web address] [id number]
--- NOTE | 2025-01-22 14:18 | XR_ITS ---
WS: [id number] XR chest 1V portable [id number] REASON FOR EXAM: Syncopal episode FINDINGS: Chest is unchanged compared to 12/31/2024. The heart and the mediastinum are within normal limits. Calcified granulomatous disease bilaterally. Acute pulmonary parenchymal or pleural abnormality is identified. XR/XR chest 1V portable [id number] IMPRESSION: Stable chest without acute abnormality.
--- NOTE | 2025-01-22 14:19 | ED_ITS ---
HPI - Syncope 2 General: Chief Complaint: Syncope Stated Complaint: weak / dizzy Time Seen by Provider: 01/22/25 14:14 History of Present Illness: 39-year-old male presents to the emergen cy room with elevated blood pressure and near syncopal episode he never fully lost consciousness blood pressures are markedly elevated just generally says he has not felt well he has been weak and dizzy. He was seen last monthwWith similar type symptoms and a near syncopal episode on December 31 CT was done and showed a hypodense lesion is scheduled for an outpatient MRI that has not yet been completed. He had some vague chest pain he has been seen for this multiple times in the past as well. He is not having any pain or chest discomfort at this time. Associated symptoms: Deny abdominal pain, chest pain or fever(s) Related Data Home Medications ?Medication ?Instructions ?Recorded ?Confirmed ibuprofen 200 mg tablet (Advil) 800 mg PO Q6H PRN Feve r Or Pain 01/22/25 01/24/25 losartan 50 mg tablet 50 mg PO DAILY 01/22/2508/15 Previous Rx's ?Medication ?Instructions ?Recorded pantoprazole 40 mg tablet,delayed 40 mg PO DAILY #30 t abs 05/28/23 release metoprolol succinate 25 mg 50 mg (2 x 25 mg) PO DAILY #60 tabs 01/22/25 tablet,extended release 24 hr (Toprol XL) Allergies Allergy/AdvReac Type Severity Reaction Status Date / Time No Known Allergies Allergy Verified 12/31/24 18:44 Review of Systems 2 Const: Denies: fever(s) or chills Card: Denies: chest pain Resp: Denies: dyspnea GI: Denies: abdominal pain : Denies: dysuria, urinary frequency or urinary urgency Musc: Denies: neck pain or back pain Skin/Breast: Denies: rash PFSH ED 2 PFSH: Medical History Decreased libido Erectile dysfunction Social History Smoking and tobacco/nicotine status: light tobacco/nicotine user smokeless tobacco Alcohol intake: current Alcohol intake frequency: few times a week Substance/Drug Use: unknown Adopted: Yes Caregiver/support person: No Lives independently: Yes Marital status: Single Current occupational status: employed Current gender identity: Male Physical Exam 2 Const: COMMON NORMALS: no acute distress GENERAL APPEARANCE: cooperative and comfortable ORIENTATION/CONSCIOUSNESS: Yes awake, Yes oriented to person, Yes oriented to place and Yes oriented to time HENMT: COMMON NORMALS: normocephalic, atraumatic and hearing grossly normal bilaterally HEAD & SCALP: normocephalic and atraumatic Resp: COMMON NORMALS: normal respiratory effort, No retractions, No use of accessory muscles and clear to auscultation bilaterally AUSCULTATION: clear to auscultation bilaterally Cardio: COMMON NORMALS: regular rate, regular rhythm and No murmurs present (Cardio) RATE: regular rate RHYTHM: regular rhythm GI: COMMON NORMALS: Soft to palpation and No hepatosplenomegaly present A USCULTATION: Yes normoactive bowel sounds PALPATION: Yes Soft to palpation, No Tenderness to palpation present (GI), No Guarding due to palpation present (GI) and Yes No hepatosplenomegaly present Extremity: COMMON NORMALS: normal to inspection, capillary refill normal, no clubbing, cyanosis or edema, no calf tenderness and no pedal edema Neuro: SENSORIUM/ORIENTATION: Yes oriented to person, Yes oriented to place and Yes oriented to time OTHER: No focal neurologic deficits are noted NIH is 0 Skin: COMMON NORMALS: no rashes or lesions noted GENERAL SKIN EXAM: no rashes or lesions noted Course 2 Vital Signs: Vital signs: Vital Signs Temperature 97.8 F 01/22/25 14:00 Pulse Rate 77 01/22/25 15:40 Respiratory Rate 18 01/22/25 14:00 Blood Pressure 146/107 01/22/25 15:40 Pulse Oximetry 95 01/22/25 15:40 Oxygen Delivery Me thod Room Air 01/22/25 14:00 MDM - Syncope Medical Decision Making No evidence that he had a stroke. He had missed his beta-slava this morning he is on propranolol I think he may do better if he switched to metoprolol. Will switch him to 50 mg once a day and have him continue the losartan. He has an appointment scheduled for an outpatient MRI concerning the abnormality seen on his CT last month. None of his history sounds like he actually had a TIA or stroke. He has no focal neurologic deficits it does not sound like it is if he had a seizure at this point he is aware of these episodes and states he nearly loses consciousness he gets a discomfort into his neck and his jaw. He has had this intermittently for some time his baseline troponin is 9. Complete MRI as scheduled. Medical Records I reviewed the patient's medical records. Lab Data I reviewed the patient's lab results. 01/22/25 14:40 01/22/25 14:40 Radiology Impressions Chest X-Ray 01/22/25 14:18 IMPRESSION: Stable chest without acute abnormality. Laboratory Results WBC 9.39 10^3/uL (3.29-11.43) 01/22/25 14:40 RBC 4.85 10^6/uL (3.85-5.65) 01/22/25 14:40 Hgb 14.80 g/dL (11.27-16.99) 01/22/25 14:40 Hct 42.7 % (37-53) 01/22/25 14:40 MCV 88.0 fl (82-101) 01/22/25 14:40 MCH 30.5 pg (27-33) 01/22/25 14:40 MCHC 34.7 g/dL (30-55) 01/22/25 14:40 RDW 12.5 % (12.1-15.1) 01/22/25 14:40 Plt Count 279 10^3/cmm (157-399) 01/22/25 14:40 MPV 8.8 fL (7.4-10.4) 01/22/25 14:40 Neut % (Auto) 60.6 % 01/22/25 14:40 Lymph % (Auto) 29.8 % 01/22/25 14:40 [place] % (Auto) 6.4 % 01/22/25 14:40 Eos % (Auto) 2.0 % 01/22/25 14:40 Baso % (Auto) 0.7 % 01/22/25 14:40 Neut # (Auto) 5.68 10^3/uL (1.8-7.7) 01/22/25 14:40 Lymph # (Auto) 2.8 10^3/uL (0.8-4.8) 01/22/25 14:40 [place] # (Auto) 0.6 10^3/uL (0.2-0.9) 01/22/25 14:40 Eos # (Auto) 0.2 10^3/uL (0.0-0.8) 01/22/25 14:40 Baso # (Auto) 0.1 10^3/uL (0.0-0.1) 01/22/25 14:40 Nucleated RBC % (auto) 0 % 01/22/25 14:40 Nucleated RBCs # 0.0 /100WBC 01/22/25 14:40 Sodium 140 mmol/L (136-145) 01/22/25 14:40 Potassium 3.8 mmol/L (3.5-5.1) 01/22/25 14:40 Chloride 103 mmol/L (98-107) 01/22/25 14:40 Carbon Dioxide 21 mmol/L (22-29) L 01/22/25 14:40 Anion Gap 19.8 (5-19) H 01/22/25 14:40 BUN 13 mg/dL (6-20) 01/22/25 14:40 Creatinine 0.9 mg/dL (0.7-1.2) 01/22/25 14:40 GFR Calculation 95.0 mL/min (90-130) 01/22/25 14:40 Glucose 135 mg/dL (65-115) H 01/22/25 14:40 Calculated Osmolality 292 mOsm/kg (285-295) 01/22/25 14:40 Calcium 9.6 mg/dL (8.5-10.5) 01/22/25 14:40 Total Bilirubin 0.2 mg/dL (0.15-1.2) 01/22/25 14:40 AST 25 U/L (0-40) 01/22/25 14:40 ALT 41 U/L (0-41) 01/22/25 14:40 Alkaline Phosphatase 82 U/L (40-130) 01/22/25 14:40 Troponin T Baseline 9 ng/L (0-15) 01/22/25 14:40 Total Protein 7.4 g/dL (6.6-8.7) 01/22/25 14:40 Albumin 4.8 g/dL (3.5-5.2) 01/22/25 14:40 Globulin 2.6 g/dL (1.3-4.6) 01/22/25 14:40 All radiology interpretation(s) finalized by discharge EKG Data EKG 1: Interpretation: EKG normal sinus rhythm no acute ST changes noted rate of 80 acute GA interval 166 QTc 379 EKG 2: Interpretation: EKG 01/24/2025 1343 normal sinus rhythm. Rate of 62 GA interval 182 QTc 394. No acute ST changes noted. Isolated T wave inversion in lead III. Discharge Plan Discharge Patient Disposition: Home Clinical Impression: Accelerated hypertension Condition: Stable Prescriptions: New metoprolol succinate [Toprol XL] 25 mg tablet extended release 24 hr 50 mg PO DAILY Qty: 60 0RF Discontinued propranolol 20 mg tablet 20 mg PO DAILY No Action pantoprazole 40 mg tablet,delayed release (DR/EC) 40 mg PO DAILY Qty: 30 0RF losartan 50 mg tablet 50 mg PO DAILY ibuprofen [Advil] 200 mg Tablet 800 mg PO Q6H PRN (Reason: Fever Or Pain) Discharge Orders: Discharge ED (Routine); Ordered 01/22/25 Ordered By: Delfino Encarnacion Referrals: Dawson Carvalho NP [Primary Care Provider, Nurse Practitioner] Patient Instructions: Opioid Safety, Pain Management, Patient Portal & Sigrid Instructions Activity Restrictions/Additional Instructions: [facility]. It is very important that you follow up as instructed or that you return to the Emergency Department should you have concerns or if your condition changes or worsens in any way. Emergency department visits are focused on emergent conditions, in some cases you may require further evaluation on an outpatient basis. You were seen in the emergency room after missing your blood pressure pills your blood pressure had spiked you had symptoms near syncopal episode. Your blood pressure is improving reported your symptoms are resolved your laboratory test and EKG were unremarkable. Recommend you stop your propranolol instead take Toprol-XL 50 mg once daily. Follow-up with your primary care doctor within the next week. (Please note that included in your discharge packet is information concerning opioid safety and pain management. This information is given to all patients were discharged from the ER regardless of their discharge diagnosis or the medicines they usually take or are prescribed.) Print Language: Algerian Coding Level of Care Code ED Search Engine Optimization Consultant for Yahir Munoz
--- NOTE | 2025-01-22 14:49 | ECG_ITS ---
[facility] Test Date: 2025-01-22 Pat Name: Tang Hogue Department: Room: Gender: Male Record Pressman: : 1985 Requested By: Delfino Durham Order Number: [id number] Luis Enrique MD: Chica Alvarado M.D. Measurements Intervals [place] Rate: 78 P: 49 MS: 174 QRS: -19 QRSD: 104 T: 6 QT: 355 QTc: 404 Interpretive Statements SINUS RHYTHM Compared to ECG 01/22/2025 14:11:20 Sinus arrhythmia no longer present Electronically Signed On 01-22-2025 17:11:40 CDT by Chica Alvarado M.D. [email or web address]
[2025-01-22 14:56] LABS: Hematocrit 42.7 % (37-53); Hemoglobin 14.80 g/dL (11.27-16.99); Mean Corpuscular HGB Conc 34.7 g/dL (30-55); Mean Corpuscular Hemoglobin 30.5 pg (27-33); Mean Corpuscular Volume 88.0 fl (82-101); Nucleated Red Blood Cells % 0 %; Platelet Count 279 10^3/cmm (157-399); Red Blood Count 4.85 10^6/uL (3.85-5.65); White Blood Count 9.39 10^3/uL (3.29-11.43)
[2025-01-22 15:14] LABS: Alanine Aminotransferase 41 U/L (0-41); Albumin Level 4.8 g/dL (3.5-5.2); Alkaline Phosphatase 82 U/L (40-130); Anion Gap 19.8 (5-19); Aspartate Amino Transferase 25 U/L (0-40); Blood Urea Nitrogen 13 mg/dL (6-20); Calcium 9.6 mg/dL (8.5-10.5); Carbon Dioxide 21 mmol/L (22-29); Chloride 103 mmol/L (98-107); Creatinine Clr Calc Pharmacy 142.4706; Globulin 2.6 g/dL (1.3-4.6); Glucose 135 mg/dL (65-115); Osmolality Calculated 292 mOsm/kg (285-295); Potassium 3.8 mmol/L (3.5-5.1); Sodium 140 mmol/L (136-145); Total Protein 7.4 g/dL (6.6-8.7)
[2025-01-22 15:18] LABS: Troponin(5th) Baseline 9 ng/L (0-15)
[2025-01-22 15:40] VITALS: BP 146/107; PULSE 77; O2SAT 95
--- NOTE | 2025-01-22 15:41 | PC.PHAR ---
patient states he had Nitro , but it is exspired and he wants a new scriprt
== END 2025-01-22 15:41 | disposition home or self-care (01) ==
PROVIDERS: Emergency Provider Family Medicine; PCP Nurse Practitioner Family
DX: I10 Essential (primary) hypertension (principal); Z72.0 Tobacco use
CPT/HCPCS: 36415; 71045; 80053; 84484; 85025; 93005; 99285

== ENCOUNTER 2025-01-24 11:43 | Emergency (ER) | payer BC, MEDICAID, SELFPAY ==
--- NOTE | 2025-01-24 11:45 | XRR_ITS ---
PROCEDURE INFORMATION: Exam: XR Chest Exam date and time: 01/24/2025 12:05 PM Age: 39 years old Clinical indication: Pain; Chest pressure; Additional info: Chest pain; HTN; Syncope TECHNIQUE: Imaging protocol: Radiologic exam of the chest. Views: 1 view. COMPARISON: CR XR chest 1V portable [id number] 01/22/2025 02:27 PM FINDINGS: Lungs: Unremarkable. No consolidation. Pleural spaces: Unremarkable. No pleural effusion. No pneumothorax. Heart/Mediastinum: Cardiac size and configuration is stable. Bones/joints: Unremarkable. XR/XR chest 1V portable [id number] IMPRESSION: No acute findings.
--- NOTE | 2025-01-24 11:45 | ECG_ITS ---
[facility] Test Date: 2025-01-24 Pat Name: Tang Hogue Department: Room: Gender: Male Careers Adviser: : 1985 Requested By: Mazin Kelly Order Number: [id number] Luis Enrique MD: Chica Alvarado M.D. Measurements Intervals [place] Rate: 66 P: 44 [place]: 168 QRS: 2 QRSD: 93 T: 18 QT: 379 QTc: 399 Interpretive Statements SINUS RHYTHM Compared to ECG 01/22/2025 14:49:08 No significant changes Electronically Signed On 01-24-2025 14:25:31 CDT by Chica Alvarado M.D. [id number]
[2025-01-24 11:50] VITALS: BP 146/101; PULSE 76; RESP 16; TEMP 36.9; O2SAT 97; BMI 27.8
--- NOTE | 2025-01-24 12:02 | ED_ITS ---
HPI - Chest Pain 2 General: Chief Complaint: Chest Pain Stated Complaint: CP Passing Out BP HI Time Seen by Provider: 01/24/25 11:52 History of Present Illness: Patient is 39-year-old male with history of hypertension, on metoprolol and losartan, presents to the emergency room due to headache, passing out, chest pain. Blood pressure was quite elevated at home. Patient picked up his medication changed from propranolol to metoprolol, and did consume this today. He continues on his losartan. He states that his head feels full, he is dizzy, and passes out occasionally. He has difficulty communicating thoughts when he is having this head pressure. He states this is at rest. He stated yesterday he was in the truck with a coworker, felt his head get full, dizzy, both his arms go numb, and he felt like he lost consciousness for a few seconds. He stated his eyes were bloodshot. He has had difficult time controlling his blood pressure. He has associated symptoms of chest pressure. This is minimal association of shortness of breath. No diaphoresis. No family history of early heart disease. Patient was here last month with similar type symptoms. This has waxed and waned, however has definitely worsened in the last [address] last month that showed abnormal reading. He was awaiting MRI outpatient. 12/31 CT: Medial right temporal lobe hypodensity which could reflect encephalomalacia/chronic infarction or edema. If the latter, an underlying mass lesion would be a consideration. Contrast-enhanced MRI would provide more definitive characterization. Associated symptoms: Deny abdominal pain, dyspnea, fever(s) or palpitations Related Data Home Medications ?Medication ?Instructions ?Recorded ?Confirmed ibuprofen 200 mg tablet (Advil) 800 mg PO Q6H PRN Feve r Or Pain 01/22/25 01/24/25 losartan 50 mg tablet 50 mg PO DAILY 01/22/2508/15 Previous Rx's ?Medication ?Instructions ?Recorded pantoprazole 40 mg tablet,delayed 40 mg PO DAILY #30 t abs 05/28/23 release metoprolol succinate 25 mg 50 mg (2 x 25 mg) PO DAILY #60 tabs 01/22/25 tablet,extended release 24 hr (Toprol XL) Allergies Allergy/AdvReac Type Severity Reaction Status Date / Time No Known Allergies Allergy Verified 12/31/24 18:44 Review of Systems 2 General: Reports: 10 or more systems reviewed and unremarkable except in HPI and below Const: Denies: fever(s) or chills Card: Reports: chest pain; Denies: palpitations Resp: Denies: dyspnea GI: Denies: abdominal pain : Denies: dysuria, urinary frequency or urinary urgency Musc: Denies: neck pain or back pain Skin/Breast: Denies: rash Neuro: Reports: headache(s), numbness in extremities, sensory changes, dizziness, vertigo and difficulty communicating thoughts; Denies: weakness in extremities, difficulty walking or Slurred speech present Psych: Denies: anxiety or depression PFSH ED 2 PFSH: Medical History (Updated 01/24/25 @ 15:37 by SCARLET Palomares) Decreased libido Erectile dysfunction Social History Smoking and tobacco/nicotine status: light tobacco/nicotine user smokeless tobacco Alcohol intake: current Alcohol intake frequency: few times a week Substance/Drug Use: unknown Adopted: Yes Caregiver/support person: No Lives independently: Yes Marital status: Single Current occupational status: employed Current gender identity: Male Physical Exam 2 Const: COMMON NORMALS: no acute distress GENERAL APPEARANCE: cooperative and comfortable ORIENTATION/CONSCIOUSNESS: Yes awake, Yes oriented to person, Yes oriented to place and Yes oriented to time HENMT: COMMON NORMALS: normocephalic, atraumatic and hearing grossly normal bilaterally HEAD & SCALP: normocephalic and atraumatic Eye: COMMON NORMALS: Equal, round and reactive pupils present, EOMs intact bilaterally, conjunctivae normal and no scleral icterus CONJUNCTIVA: Yes conjunctivae normal PUPIL: Yes Equal, round and reactive pupils present Chest: COMMONS NORMALS: normal inspection of the chest and normal palpation of entire chest wall Resp: COMMON NORMALS: normal respiratory effort, No retractions, No use of accessory muscles and clear to auscultation bilaterally AUSCULTATION: clear to auscultation bilaterally Cardio: COMMON NORMALS: regular rate, regular rhythm and No murmurs present (Cardio) RATE: regular rate RHYTHM: regular rhythm GI: COMMON NORMALS: Soft to palpation and No hepatosplenomegaly present A USCULTATION: Yes normoactive bowel sounds PALPATION: Yes Soft to palpation, No Tenderness to palpation present (GI), No Guarding due to palpation present (GI) and Yes No hepatosplenomegaly present Extremity: COMMON NORMALS: normal to inspection, capillary refill normal, no clubbing, cyanosis or edema, no calf tenderness and no pedal edema Neuro: SENSORIUM/ORIENTATION: Yes oriented to person, Yes oriented to place and Yes oriented to time Skin: COMMON NORMALS: no rashes or lesions noted GENERAL SKIN EXAM: no rashes or lesions noted Course 2 Vital Signs: Vital signs: Vital Signs Temperature 98.4 F 01/24/25 11:50 Pulse Rate 78 01/24/25 15:41 Respiratory Rate 16 01/24/25 11:50 Blood Pressure 140/86 01/24/25 15:41 Pulse Oximetry 98 01/24/25 15:41 Oxygen Delivery Me thod Room Air 01/24/25 13:48 MDM - Chest Pain Medical Decision Making Initial cardiac workup is negative. Patient's symptoms are mainly neurological in nature with association of hypertension. Recheck on blood pressure was 161/101. Certainly is high and qualifies for hypertensive encephalopathy with patient's history. Given his abnormal CT last month, I discussed with MRI to obtain a stat MRI with contrast with concern of enhancing lesion and turning to emergent situation given his question of hypertension encephalopathy. MRI with contrast will be ordered on an emergent basis given this concern. Medical Records I reviewed the patient's medical records. Lab Data 01/24/25 12:01 01/24/25 12:01 Radiology Impressions Chest X-Ray 01/24/25 11:45 IMPRESSION: No acute findings. Head MRI 01/24/25 12:12 IMPRESSION: Approximately 4-4.5 x 3 cm area of mild hypointense signal intensity on the T1 images and hyperintense signal intensity on the T2 images within the medial right temporal lobe. Comparing pre and postcontrast axial T1 images, this area appears slightly less hypointense postcontrast suggesting subtle or minimal contrast enhancement. No significant or prominent or nodular contrast enhancement otherwise. Appearance on the DWI and ADC images do not suggest acute or recent ischemic infarct. Can not exclude a low-grade mass lesion, with other less likely consideration including inflammation/infection. Laboratory Results WBC 8.58 10^3/uL (3.29-11.43) 01/24/25 12:01 RBC 4.85 10^6/uL (3.85-5.65) 01/24/25 12:01 Hgb 14.70 g/dL (11.27-16.99) 01/24/25 12:01 Hct 42.3 % (37-53) 01/24/25 12: MCV 87.2 fl (82-101) 01/24/25 12:01 MCH 30.3 pg (27-33) 01/24/25 12: MCHC 34.8 g/dL (30-55) 01/24/25 12: RDW 12.7 % (12.1-15.1) 01/24/25 12: Plt Count 272 10^3/cmm (157-399) 01/24/25 12: MPV 8.7 fL (7.4-10.4) 01/24/25 12: Neut % (Auto) 58.2 % 01/24/25 12: Lymph % (Auto) 30.2 % 01/24/25 12: [place] % (Auto) 8.5 % 01/24/25 12: Eos % (Auto) 2.1 % 01/24/25 12:01 Baso % (Auto) 0.7 % 01/24/25 12:01 Neut # (Auto) 4.99 10^3/uL (1.8-7.7) 01/24/25 12: Lymph # (Auto) 2.6 10^3/uL (0.8-4.8) 01/24/25 12:01 [place] # (Auto) 0.7 10^3/uL (0.2-0.9) 01/24/25 12: Eos # (Auto) 0.2 10^3/uL (0.0-0.8) 01/24/25 12:01 Baso # (Auto) 0.1 10^3/uL (0.0-0.1) 01/24/25 12:01 Nucleated RBC % (auto) 0 % 01/24/25 12: Nucleated RBCs # 0.0 /100WBC 01/24/25 12:01 Sodium 137 mmol/L (136-145) 01/24/25 12:01 Potassium 3.8 mmol/L (3.5-5.1) 01/24/25 12:01 Chloride 103 mmol/L (98-107) 01/24/25 12:01 Carbon Dioxide 21 mmol/L (22-29) L 01/24/25 12:01 Anion Gap 16.8 (5-19) 01/24/25 12:01 BUN 12 mg/dL (6-20) 01/24/25 12:01 Creatinine 1.1 mg/dL (0.7-1.2) 01/24/25 12:01 GFR Calculation 75.3 mL/min (90-130) L 01/24/25 12:01 Glucose 120 mg/dL (65-115) H 01/24/25 12:01 Calculated Osmolality 285 mOsm/kg (285-295) 01/24/25 12:01 Calcium 9.3 mg/dL (8.5-10.5) 01/24/25 12:01 Total Bilirubin 0.4 mg/dL (0.15-1.2) 01/24/25 12:01 AST 24 U/L (0-40) 01/24/25 12:01 ALT 39 U/L (0-41) 01/24/25 12:01 Alkaline Phosphatase 80 U/L (40-130) 01/24/25 12:01 Troponin T Baseline 9 ng/L (0-15) 01/24/25 12:01 Troponin T 120 Minute 8.87 ng/L (0-15) 01/24/25 14:02 Delta Troponin T -0.13 ABS# (0-10) L 01/24/25 14:02 Total Protein 7.6 g/dL (6.6-8.7) 01/24/25 12:01 Albumin 4.5 g/dL (3.5-5.2) 01/24/25 12:01 Globulin 3.1 g/dL (1.3-4.6) 01/24/25 12:01 Lipase 35 U/L (13-60) 01/24/25 12:01 All radiology interpretation(s) finalized by discharge ED provider radiology interpretation(s): Enhancing lesion on MRI noted, large. Await reading EKG Data EKG 1: Interpretation: Normal sinus, left axis, heart rate 66, QTc 393 Discharge Plan Discharge Patient Disposition: Home Clinical Impression: 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, Chest pain, non-cardiac Hypertension Qualifiers: Hypertension type: primary hypertension Qualified Code(s): I10 - Essential (primary) hypertension Condition: Stable Prescriptions: No Action pantoprazole 40 mg tablet,delayed release (DR/EC) 40 mg PO DAILY Qty: 30 0RF metoprolol succinate [Toprol XL] 25 mg tablet extended release 24 hr 50 mg PO DAILY Qty: 60 0RF losartan 50 mg tablet 50 mg PO DAILY ibuprofen [Advil] 200 mg Tablet 800 mg PO Q6H PRN (Reason: Fever Or Pain) Discharge Orders: Discharge ED (Routine); Ordered 01/24/25 Ordered By: Rupa Warren Referrals: Vanessa Parikh MD [Physician, Neurology] - 7-10 days Referral Note: cva vs. mass Dawson Carvalho NP [Primary Care Provider, Nurse Practitioner] Discharge Diet: Usual diet and Low Salt Discharge Activity: Resume usual activity Patient Instructions: DASH Eating Plan (ED), Patient Portal & Sigrid Instructions Activity Restrictions/Additional Instructions: - Follow the above eating plan of a low-sodium diet - Take your hypertensive medications as directed - Take baby coated aspirin daily (81 mg) - Follow-up with neurology/referral has been made. Call Sunday and ensure that they have the referral for an appointment for hospital follow-up. Print Language: Romansh Coding Level of Care Code ED Parks And Recreation Manager for Chg Fwd Heart Score HEART Score Components History: Slightly Suspicous EKG: Normal Age: Less than 45 yrs Risk Factors: No Risk Factors Known Troponin: Baseline Trop <16 ng/L HEART Score RESULT HEART Score: 0
[2025-01-24 12:03] VITALS: BP 148/86; PULSE 77; O2SAT 94
[2025-01-24 12:07] LABS: Hematocrit 42.3 % (37-53); Hemoglobin 14.70 g/dL (11.27-16.99); Mean Corpuscular HGB Conc 34.8 g/dL (30-55); Mean Corpuscular Hemoglobin 30.3 pg (27-33); Mean Corpuscular Volume 87.2 fl (82-101); Nucleated Red Blood Cells % 0 %; Platelet Count 272 10^3/cmm (157-399); Red Blood Count 4.85 10^6/uL (3.85-5.65); White Blood Count 8.58 10^3/uL (3.29-11.43)
--- NOTE | 2025-01-24 12:12 | MRR_ITS ---
PROCEDURE INFORMATION: Exam: MR Head Without and With Contrast Exam date and time: 01/24/2025 12:49 PM Age: 39 years old Clinical indication: Abnormal findings; Abnormal radiologic findings of head/skull; Not specified; Altered mental status/memory loss and syncope and collapse; Confusion or disorientation; Additional info: Syncope, dizziness, abnormal CT, concern for enhancing lesion TECHNIQUE: Imaging protocol: Magnetic resonance imaging of the head without and with contrast. Contrast material: MULTIHANCE; Contrast volume: 20 ml; Contrast route: INTRAVENOUS (IV); COMPARISON: CT head wo con* [id number] 12/31/2024 8:15 PM FINDINGS: Brain: An area of mild hypointense signal intensity on T1 images and hyperintense signal intensity on T2 images is seen within the medial right temporal lobe, measuring approximately 4-4.5 x 3 cm in size. Comparing axial T1 pre and postcontrast, area of hypointensity is less hypointense postcontrast suggesting subtle or minimal contrast enhancement. No significant or prominent or nodular contrast enhancement postcontrast otherwise. This demonstrates high signal intensity on the diffusion-weighted images with predominant high signal intensity on the ADC images and not low signal intensity on the ADC images to indicate significant restricted diffusion. There is lack of typical appearance between the DWI and ADC to indicate acute or recent ischemic infarct, therefore. Can not exclude low-grade mass lesion (no significant or prominent enhancement regarding high-grade mass lesion). Other less likely consideration includes inflammation/infection. No abnormal signal intensity otherwise within the brain. No intracranial hemorrhage or hematoma. No mass effect or shift of midline structures. Cerebral ventricles: No ventriculomegaly. Bones: No acute findings. Paranasal sinuses: Normal as visualized. No acute sinusitis. Mastoid air cells: Normal as visualized. No mastoid effusion. Orbital cavities: Unremarkable. Soft tissues: Unremarkable. MR/MR head wo/w con [id number] IMPRESSION: Approximately 4-4.5 x 3 cm area of mild hypointense signal intensity on the T1 images and hyperintense signal intensity on the T2 images within the medial right temporal lobe. Comparing pre and postcontrast axial T1 images, this area appears slightly less hypointense postcontrast suggesting subtle or minimal contrast enhancement. No significant or prominent or nodular contrast enhancement otherwise. Appearance on the DWI and ADC images do not suggest acute or recent ischemic infarct. Can not exclude a low-grade mass lesion, with other less likely consideration including inflammation/infection.
--- NOTE | 2025-01-24 12:32 | PC.PHAR ---
Pt was instructed to stop taking when here at ER visit on 01/22-Propranolol 20mg bid last fill 12/06/24 30ds. Pt also has stopped taking Simvastatin 20mg qpm last fill 12/05/24 90ds.
[2025-01-24 12:34] LABS: Troponin(5th) Baseline 9 ng/L (0-15)
[2025-01-24 12:43] LABS: Alanine Aminotransferase 39 U/L (0-41); Albumin Level 4.5 g/dL (3.5-5.2); Alkaline Phosphatase 80 U/L (40-130); Anion Gap 16.8 (5-19); Aspartate Amino Transferase 24 U/L (0-40); Blood Urea Nitrogen 12 mg/dL (6-20); Calcium 9.3 mg/dL (8.5-10.5); Carbon Dioxide 21 mmol/L (22-29); Chloride 103 mmol/L (98-107); Creatinine Clr Calc Pharmacy 105.9485; Globulin 3.1 g/dL (1.3-4.6); Glucose 120 mg/dL (65-115); Lipase 35 U/L (13-60); Osmolality Calculated 285 mOsm/kg (285-295); Potassium 3.8 mmol/L (3.5-5.1); Sodium 137 mmol/L (136-145); Total Protein 7.6 g/dL (6.6-8.7)
--- NOTE | 2025-01-24 13:43 | ECG_ITS ---
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 Measurements Intervals [place] Rate: 62 P: 20 MT: 182 QRS: 9 QRSD: 89 T: -7 QT: 386 QTc: 394 Interpretive Statements SINUS RHYTHM POSSIBLE INFERIOR MYOCARDIAL INFARCTION , OF INDETERMINATE AGE [30 ms Q WAVE IN II/aVF] Compared to ECG 01/24/2025 11:45:35 Myocardial infarct finding now present Electronically Signed On 01-24-2025 14:38:38 CDT by Chica Alvarado M.D. [id number] [id number]
[2025-01-24 13:48] VITALS: BP 149/80; PULSE 63; O2SAT 98
[2025-01-24 14:00] VITALS: BP 133/84; PULSE 69; O2SAT 97
[2025-01-24 14:32] LABS: Troponin 5 2HR 8.87 ng/L (0-15)
[2025-01-24 14:33] LABS: Troponin 5 2HR Delta -0.13 ABS# (0-10)
[2025-01-24 15:41] VITALS: BP 140/86; PULSE 78; O2SAT 98
== END 2025-01-24 16:16 | disposition home or self-care (01) ==
PROVIDERS: Emergency Medicine; Emergency Provider Physician Assistant; PCP Nurse Practitioner Family
DX: G93.89 Other specified disorders of brain (principal); R07.89 Other chest pain; I10 Essential (primary) hypertension; Z72.0 Tobacco use
CPT/HCPCS: 36415; 70553; 71045; 80053; 83690; 84484; 85025; 93005; 99285; J9999

== ENCOUNTER 2025-01-26 10:09 | Emergency (ER) | payer BC, MEDICAID, SELFPAY ==
[2025-01-26 10:16] VITALS: BP 160/88; PULSE 80; RESP 16; TEMP 36.6; O2SAT 99
--- NOTE | 2025-01-26 10:39 | ECG_ITS ---
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 Measurements Intervals [place] Rate: 74 P: 29 TN: 173 QRS: -4 QRSD: 88 T: 19 QT: 337 QTc: 376 Interpretive Statements SINUS RHYTHM Compared to ECG 01/24/2025 13:43:27 Myocardial infarct finding no longer present Electronically Signed On 01-26-2025 23:26:38 CDT by Chica Alvarado M.D. [id number]
--- NOTE | 2025-01-26 10:39 | XR_ITS ---
WS: [id number] Portable AP upright chest, 01/26/2025 Clinical Data: dyspnea/cough Comparison: Portable chest, 01/24/2025 Findings: No nodules, masses or effusions are seen. The heart is normal. The pulmonary vascularity is not increased. No pneumonia or pneumothorax is seen. XR/XR chest 1V portable [id number] Impression: Negative chest.
--- NOTE | 2025-01-26 10:55 | ED_ITS ---
HPI - Neuro Symptoms/Deficit 2 General: Chief Complaint: Neuro Symptoms/Deficit Stated Complaint: chest pain, jaw is stiff Time Seen by Provider: 01/26/25 10:39 History of Present Illness: 39-year-old male presents to the emergen cy room complaining of chest pain jaw stiffness. He has been seen several times for this first visit in January 28 seemed twice in the last 4 days. On the second he was seen his blood pressure elevated with the blood pressure medicine adjusted he had an MRI scheduled has not yet been completed he returned on the fourth MRI was done in the emergency room. There had been a question previously in the CT of abnormal area in the left temporal lobe on the MRI it was noted as well. He is scheduled to see neurology. He reports continued to have episodes where he feels like he cannot walk or cannot speak he feels like he is going to pass out but never completely loses consciousness. He is not having any symptoms now he is not having any chest pain now he said he had some chest pain earlier today and had another 1 of what he describes of these episodes this morning and route to the emergency room. He is being referred to neurology. Associated symptoms: Deny chest pain Related Data Home Medications ?Medication ?Instructions ?Recorded ?Confirmed ibuprofen 200 mg tablet (Advil) 800 mg PO Q6H PRN Feve r Or Pain 01/22/25 01/24/25 losartan 50 mg tablet 50 mg PO DAILY 01/22/2508/15 Previous Rx's ?Medication ?Instructions ?Recorded pantoprazole 40 mg tablet,delayed 40 mg PO DAILY #30 t abs 05/28/23 release metoprolol succinate 25 mg 50 mg (2 x 25 mg) PO DAILY #60 tabs 01/22/25 tablet,extended release 24 hr (Toprol XL) Allergies Allergy/AdvReac Type Severity Reaction Status Date / Time No Known Allergies Allergy Verified 12/31/24 18:44 Review of Systems 2 Const: Denies: fever(s) or chills Card: Denies: chest pain Resp: Denies: dyspnea GI: Denies: abdominal pain : Denies: dysuria, urinary frequency or urinary urgency Musc: Denies: neck pain or back pain Skin/Breast: Denies: rash PFSH ED 2 PFSH: Medical History Decreased libido Erectile dysfunction Social History Smoking and tobacco/nicotine status: light tobacco/nicotine user smokeless tobacco Alcohol intake: current Alcohol intake frequency: few times a week Substance/Drug Use: unknown Adopted: Yes Caregiver/support person: No Lives independently: Yes Marital status: Single Current occupational status: employed Current gender identity: Male NIH stroke score 2 NIHSS: Level Of Consciousness - 1a: 0 Level Of Consciousness Questions - 1b: Both Correct Level Of Consciousness Commands - 1c: Both Correct Best Gaze - 2: Normal Visual Montoya - 3: No Visual Loss Facial Palsy - 4: N ormal Motor Arm Right - 5: No Drift Motor Arm Left - 5: No Drift Motor Leg Right - 6: No Drift Motor Leg Left - 6: No Drift Limb Ataxia - 7: A bsent Sensory - 8: Normal Best Language - 9: No Aphasia Dysarthia - 10: Normal Extinction And Inattention - 11: 0 Score: Total Score: 0 Physical Exam 2 Const: COMMON NORMALS: no acute distress GENERAL APPEARANCE: cooperative and comfortable ORIENTATION/CONSCIOUSNESS: Yes awake, Yes oriented to person, Yes oriented to place and Yes oriented to time HENMT: COMMON NORMALS: normocephalic, atraumatic and hearing grossly normal bilaterally HEAD & SCALP: normocephalic and atraumatic Resp: COMMON NORMALS: normal respiratory effort, No retractions, No use of accessory muscles and clear to auscultation bilaterally AUSCULTATION: clear to auscultation bilaterally Cardio: COMMON NORMALS: regular rate, regular rhythm and No murmurs present (Cardio) RATE: regular rate RHYTHM: regular rhythm GI: COMMON NORMALS: Soft to palpation and No hepatosplenomegaly present A USCULTATION: Yes normoactive bowel sounds PALPATION: Yes Soft to palpation, No Tenderness to palpation present (GI), No Guarding due to palpation present (GI) and Yes No hepatosplenomegaly present Extremity: COMMON NORMALS: normal to inspection, capillary refill normal, no clubbing, cyanosis or edema, no calf tenderness and no pedal edema Neuro: SENSORIUM/ORIENTATION: Yes oriented to person, Yes oriented to place and Yes oriented to time OTHER: No focal neurologic deficits at this time. Skin: COMMON NORMALS: no rashes or lesions noted GENERAL SKIN EXAM: no rashes or lesions noted Course 2 Vital Signs: Vital signs: Vital Signs Temperature 97.9 F 01/26/25 10:16 Pulse Rate 57 L 01/26/25 11:26 Respiratory Rate 16 01/26/25 10:16 Blood Pressure 148/75 01/26/25 11:26 Pulse Oximetry 98 01/26/25 11:26 Oxygen Delivery Me thod Room Air 01/26/25 10:16 MDM - Neuro Symptoms/Deficit Medical Decision Making Visits labs and imaging reviewed. He had a CT in early December questionable area outpatient MRI was scheduled it was done 2 days ago. There is a left parietal temporal area that is concerning. I discussed Dr. Choudhary he expresses some concern regarding this area. Discussed Dr. Parikh as well as she expresses similar concern. She will see the patient tomorrow in the office she she will review her concerns with him at this time at that time. Patient has no focal neurologic deficits at this time. Will also set him up per Dr. Parikh's recommendations for outpatient EEG. Reviewed follow-up with Dr. Parikh's office with the patient Dr. Parikh's office had already called the patient while he was in the emergency room. Lab work done today was unremarkable. Patient was discharged after we have gotten the appointment with Dr. Parikh. His daughter is in the emergency room same time with a ankle fracture and he wanted to be with her. Advised patient he should not drive until released by Dr. Parikh. Medical Records I reviewed the patient's medical records. Lab Data I reviewed the patient's lab results. 01/26/25 11:16 01/26/25 11:16 Radiology Impressions Chest X-Ray 01/26/25 10:39 Impression: Negative chest. Laboratory Results WBC 7.72 10^3/uL (3.29-11.43) 01/26/25 11:16 RBC 5.00 10^6/uL (3.85-5.65) 01/26/25 11:16 Hgb 14.90 g/dL (11.27-16.99) 01/26/25 11:16 Hct 44.2 % (37-53) 01/26/25 11:16 MCV 88.4 fl (82-101) 01/26/25 11:16 MCH 29.8 pg (27-33) 01/26/25 11:16 MCHC 33.7 g/dL (30-55) 01/26/25 11:16 RDW 12.7 % (12.1-15.1) 01/26/25 11:16 Plt Count 290 10^3/cmm (157-399) 01/26/25 11:16 MPV 8.7 fL (7.4-10.4) 01/26/25 11:16 Neut % (Auto) 61.0 % 01/26/25 11:16 Lymph % (Auto) 28.0 % 01/26/25 11:16 [place] % (Auto) 8.2 % 01/26/25 11:16 Eos % (Auto) 1.8 % 01/26/25 11:16 Baso % (Auto) 0.6 % 01/26/25 11:16 Neut # (Auto) 4.71 10^3/uL (1.8-7.7) 01/26/25 11:16 Lymph # (Auto) 2.2 10^3/uL (0.8-4.8) 01/26/25 11:16 [place] # (Auto) 0.6 10^3/uL (0.2-0.9) 01/26/25 11:16 Eos # (Auto) 0.1 10^3/uL (0.0-0.8) 01/26/25 11:16 Baso # (Auto) 0.1 10^3/uL (0.0-0.1) 01/26/25 11:16 Nucleated RBC % (auto) 0 % 01/26/25 11:16 Nucleated RBCs # 0.0 /100WBC 01/26/25 11:16 Sodium 141 mmol/L (136-145) 01/26/25 11:16 Potassium 4.1 mmol/L (3.5-5.1) 01/26/25 11:16 Chloride 103 mmol/L (98-107) 01/26/25 11:16 Carbon Dioxide 25 mmol/L (22-29) 01/26/25 11:16 Anion Gap 17.1 (5-19) 01/26/25 11:16 BUN 11 mg/dL (6-20) 01/26/25 11:16 Creatinine 0.9 mg/dL (0.7-1.2) 01/26/25 11:16 GFR Calculation 95.0 mL/min (90-130) 01/26/25 11:16 Glucose 92 mg/dL (65-115) 01/26/25 11:16 Calculated Osmolality 291 mOsm/kg (285-295) 01/26/25 11:16 Calcium 9.8 mg/dL (8.5-10.5) 01/26/25 11:16 Total Bilirubin 0.4 mg/dL (0.15-1.2) 01/26/25 11:16 AST 24 U/L (0-40) 01/26/25 11:16 ALT 38 U/L (0-41) 01/26/25 11:16 Alkaline Phosphatase 78 U/L (40-130) 01/26/25 11:16 Troponin T Baseline 12 ng/L (0-15) 01/26/25 11:16 C-Reactive Protein 3.0 mg/L (0.0-4.9) 01/26/25 11:16 Total Protein 7.3 g/dL (6.6-8.7) 01/26/25 11:16 Albumin 4.8 g/dL (3.5-5.2) 01/26/25 11:16 Globulin 2.5 g/dL (1.3-4.6) 01/26/25 11:16 All radiology interpretation(s) finalized by discharge EKG Data EKG 1: Interpretation: EKG 01/26/2025 10:19 AM sinus rhythm rate of 74 ID interval [address]Tc [address] changes noted isolated T wave inversion in lead III was seen in previous EKG on January 22 and January for no acute changes Discharge Plan Discharge Patient Disposition: Home Clinical Impression: 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 Hypertension Qualifiers: Hypertension type: primary hypertension Qualified Code(s): I10 - Essential (primary) hypertension Condition: Stable Prescriptions: No Action pantoprazole 40 mg tablet,delayed release (DR/EC) 40 mg PO DAILY Qty: 30 0RF metoprolol succinate [Toprol XL] 25 mg tablet extended release 24 hr 50 mg PO DAILY Qty: 60 0RF losartan 50 mg tablet 50 mg PO DAILY ibuprofen [Advil] 200 mg Tablet 800 mg PO Q6H PRN (Reason: Fever Or Pain) Discharge Orders: Discharge ED (Routine); Ordered 01/26/25 Ordered By: Delfino Encarnacion Referrals: Dawson Carvalho NP [Primary Care Provider, Nurse Practitioner] Discharge Diet: Usual diet Discharge Activity: Limit activity as instructed Patient Instructions: Opioid Safety, Pain Management, Patient Portal & Sigrid Instructions Activity Restrictions/Additional Instructions: [facility]. It is very important that you follow up as instructed or that you return to the Emergency Department should you have concerns or if your condition changes or worsens in any way. Emergency department visits are focused on emergent conditions, in some cases you may require further evaluation on an outpatient basis. You were seen today with complaints of nearly passing out getting lightheaded dizzy weak and having difficulty with balance. We reviewed your previous MRI and discussed it with Dr. Parikh our neurologist. She will see you tomorrow. Their office will contact you they are also going to arrange for an EEG. Recommend you do not drive until you are seen by her. Continue your current medications for your blood pressure. (Please note that included in your discharge packet is information concerning opioid safety and pain management. This information is given to all patients were discharged from the ER regardless of their discharge diagnosis or the medicines they usually take or are prescribed.) Print Language: Hungarian Coding Level of Care Code ED Leather Goods I Assembler for Yahir Munoz
[2025-01-26 11:26] VITALS: BP 148/75; BP 154/90; BP 159/90; PULSE 57; PULSE 59; PULSE 61; O2SAT 98
[2025-01-26 11:33] LABS: Hematocrit 44.2 % (37-53); Hemoglobin 14.90 g/dL (11.27-16.99); Mean Corpuscular HGB Conc 33.7 g/dL (30-55); Mean Corpuscular Hemoglobin 29.8 pg (27-33); Mean Corpuscular Volume 88.4 fl (82-101); Nucleated Red Blood Cells % 0 %; Platelet Count 290 10^3/cmm (157-399); Red Blood Count 5.00 10^6/uL (3.85-5.65); White Blood Count 7.72 10^3/uL (3.29-11.43)
[2025-01-26 11:50] LABS: Alanine Aminotransferase 38 U/L (0-41); Albumin Level 4.8 g/dL (3.5-5.2); Alkaline Phosphatase 78 U/L (40-130); Anion Gap 17.1 (5-19); Aspartate Amino Transferase 24 U/L (0-40); Blood Urea Nitrogen 11 mg/dL (6-20); Calcium 9.8 mg/dL (8.5-10.5); Carbon Dioxide 25 mmol/L (22-29); Chloride 103 mmol/L (98-107); Creatinine Clr Calc Pharmacy 142.4706; Globulin 2.5 g/dL (1.3-4.6); Glucose 92 mg/dL (65-115); Osmolality Calculated 291 mOsm/kg (285-295); Potassium 4.1 mmol/L (3.5-5.1); Sodium 141 mmol/L (136-145); Total Protein 7.3 g/dL (6.6-8.7); Troponin(5th) Baseline 12 ng/L (0-15)
--- NOTE | 2025-01-28 08:44 | DCPLANNER ---
Message sent to Neurology for follow up EEG
== END 2025-01-26 12:05 | disposition home or self-care (01) ==
PROVIDERS: Emergency Provider Family Medicine; PCP Nurse Practitioner Family
DX: G93.89 Other specified disorders of brain (principal); I10 Essential (primary) hypertension; Z72.0 Tobacco use
CPT/HCPCS: 36415; 71045; 80053; 84484; 85025; 86140; 93005; 99285

== ENCOUNTER 2025-02-16 07:59 | Emergency (ER) | payer BC, MEDICAID, SELFPAY ==
--- NOTE | 2025-02-16 08:01 | XR_ITS ---
WS: [id number] Exam: XR chest 1V portable [id number] Date/Time of Exam: 02/16/2025 8:01 AM Reason For Exam: cp Comparison 01/26/2025. Lungs are fully inflated and clear. Normal cardiomediastinal silhouette. Regional bony structures appear normal. No pleural effusion. XR/XR chest 1V portable [id number] IMPRESSION: 1. Negative chest.
--- NOTE | 2025-02-16 08:01 | ECG_ITS ---
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
[2025-02-16 08:07] VITALS: BP 135/98; PULSE 85; RESP 20; TEMP 36.8; O2SAT 100; BMI 34.2
--- NOTE | 2025-02-16 08:13 | ED_ITS ---
HPI - Seizure 2 General: Chief Complaint: Seizure Stated Complaint: CP, feels like about to have a seizure Time Seen by Provider: 02/16/25 08:01 Source: patient Mode of arrival: ambulatory Limitations: no limitations History of Present Illness: HPI Narrative: 39-year-old male states he feels like he is currently having a seizure but is like he is going to have a seizure over the last 20 minutes. 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 He denies headache states he has some mild chest pains he gets when he feels like he is going to have a seizure denies any shortness of breath denies any vomiting diarrhea Associated symptoms: Reports chest pain Related Data Home Medications ?Medication ?Instructions ?Recorded ?Confirmed ibuprofen 200 mg tablet (Advil) 800 mg PO Q6H PRN Feve r Or Pain 01/22/25 02/10/25 losartan 50 mg tablet 50 mg PO DAILY 01/22/2501/22 Previous Rx's ?Medication ?Instructions ?Recorded pantoprazole 40 mg tablet,delayed 40 mg PO DAILY #30 t abs 05/28/23 release metoprolol succinate 25 mg 50 mg (2 x 25 mg) PO DAILY #60 tabs 01/22/25 tablet,extended release 24 hr (Toprol XL) levetiracetam 750 mg 2,250 mg (3 x 750 mg) PO DARRIUS LY 30 02/05/25 tablet,extended release 24 hr days #90 tabs (Keppra XR) Allergies Allergy/AdvReac Type Severity Reaction Status Date / Time No Known Allergies Allergy Verified 02/10/25 12:11 Review of Systems 2 Card: Reports: chest pain PFSH ED 2 PFSH: Medical History 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 Decreased libido Erectile dysfunction Social History Smoking and tobacco/nicotine status: former use of tobacco/nicotine (quit 01/26/25 nicotine pouches) Alcohol intake: current Alcohol intake frequency: few times a week Substance/Drug Use: unknown Adopted: Yes Caregiver/support person: No Lives independently: Yes Marital status: Single Current occupational status: employed Current gender identity: Male Physical Exam 2 Const: COMMON NORMALS: no acute distress, patient oriented x3 and healthy appearing HENMT: COMMON NORMALS: normocephalic and atraumatic HEAD & SCALP: n ormocephalic and atraumatic Eye: COMMON NORMALS: Equal, round and reactive pupils present and EOMs intact bilaterally PUPIL: Yes Equal, round and reactive pupils present Neck/C-Spine: COMMON NORMALS: full ROM and supple Chest: COMMONS NORMALS: normal inspection of the chest and normal palpation of entire chest wall Resp: COMMON NORMALS: normal respiratory effort, No retractions, No use of accessory muscles and clear to auscultation bilaterally AUSCULTATION: clear to auscultation bilaterally Cardio: COMMON NORMALS: regular rate, regular rhythm and No murmurs present (Cardio) RATE: regular rate RHYTHM: regular rhythm Extremity: COMMON NORMALS: normal to inspection and full ROM Neuro: COMMON NORMALS: patient oriented x3, moves all extremities and no focal motor deficits Psych: COMMON NORMALS: mental status grossly normal, Normal thought process present and cooperative THOUGHT PROCESS: Normal thought process present Skin: COMMON NORMALS: no rashes or lesions noted and no wounds GENERAL SKIN EXAM: no rashes or lesions noted Course 2 Vital Signs: Vital signs: Vital Signs Temperature 98.2 F 02/16/25 08:07 Pulse Rate 85 02/16/25 08:07 Respiratory Rate 20 H 02/16/25 08:07 Blood Pressure 135/98 02/16/25 08:07 Pulse Oximetry 100 02/16/25 08:07 Oxygen Delivery Me thod Room Air 02/16/25 08:07 Clincial Decision Support The following clinical decision support tools were used to aid in care of the patient HEART Score -> History: Slightly Suspicous, EKG: Normal, Age: Less than 45 yrs, Risk Factors: No Risk Factors Known, Troponin: Baseline Trop <16 ng/L. Resulting HEART Score: 0. MDM - Seizure MDM Narrative Medical decision making narrative: Patient presents here with feeling like he is sebastián have a seizure. He said no seizure-like activity. Had some mild chest pains as EKG here shows normal sinus rhythm heart rate [address] elevation QRS 115 QTc 377. Patient's vitals including blood pressure is normal here lab work here is normal as well. He has no signs of meningitis or intracerebral hemorrhage no signs ACS he is stable for discharge I did go over these findings with him he is to follow-up with his neurologist return if worsening. Lab Data 02/16/25 08:13 02/16/25 08:13 Labs: Radiology Impressions Chest X-Ray 02/16/25 08:01 IMPRESSION: 1. Negative chest. Laboratory Results WBC 6.95 10^3/uL (3.29-11.43) 02/16/25 08:13 RBC 5.23 10^6/uL (3.85-5.65) 02/16/25 08:13 Hgb 15.90 g/dL (11.27-16.99) 02/16/25 08:13 Hct 45.3 % (37-53) 02/16/25 08:13 MCV 86.6 fl (82-101) 02/16/25 08:13 MCH 30.4 pg (27-33) 02/16/25 08:13 MCHC 35.1 g/dL (30-55) 02/16/25 08:13 RDW 12.5 % (12.1-15.1) 02/16/25 08:13 Plt Count 304 10^3/cmm (157-399) 02/16/25 08:13 MPV 8.3 fL (7.4-10.4) 02/16/25 08:13 Neut % (Auto) 52.2 % 02/16/25 08:13 Lymph % (Auto) 33.8 % 02/16/25 08:13 [place] % (Auto) 9.8 % 02/16/25 08:13 Eos % (Auto) 3.3 % 02/16/25 08:13 Baso % (Auto) 0.6 % 02/16/25 08:13 Neut # (Auto) 3.63 10^3/uL (1.8-7.7) 02/16/25 08:13 Lymph # (Auto) 2.4 10^3/uL (0.8-4.8) 02/16/25 08:13 [place] # (Auto) 0.7 10^3/uL (0.2-0.9) 02/16/25 08:13 Eos # (Auto) 0.2 10^3/uL (0.0-0.8) 02/16/25 08:13 Baso # (Auto) 0.0 10^3/uL (0.0-0.1) 02/16/25 08:13 Nucleated RBC % (auto) 0 % 02/16/25 08:13 Nucleated RBCs # 0.0 /100WBC 02/16/25 08:13 Sodium 137 mmol/L (136-145) 02/16/25 08:13 Potassium 4.3 mmol/L (3.5-5.1) 02/16/25 08:13 Chloride 102 mmol/L (98-107) 02/16/25 08:13 Carbon Dioxide 17 mmol/L (22-29) L 02/16/25 08:13 Anion Gap 22.3 (5-19) H 02/16/25 08:13 BUN 9 mg/dL (6-20) 02/16/25 08:13 Creatinine 0.8 mg/dL (0.7-1.2) 02/16/25 08:13 GFR Calculation 108.8 mL/min (90-130) 02/16/25 08:13 Glucose 96 mg/dL (65-115) 02/16/25 08:13 Calculated Osmolality 283 mOsm/kg (285-295) L 02/16/25 08:13 Calcium 9.1 mg/dL (8.5-10.5) 02/16/25 08:13 Total Bilirubin 0.3 mg/dL (0.15-1.2) 02/16/25 08:13 AST 22 U/L (0-40) 02/16/25 08:13 ALT 37 U/L (0-41) 02/16/25 08:13 Alkaline Phosphatase 87 U/L (40-130) 02/16/25 08:13 Troponin T Baseline 11 ng/L (0-15) 02/16/25 08:13 Total Protein 7.6 g/dL (6.6-8.7) 02/16/25 08:13 Albumin 4.7 g/dL (3.5-5.2) 02/16/25 08:13 Globulin 2.9 g/dL (1.3-4.6) 02/16/25 08:13 Lipase 34 U/L (13-60) 02/16/25 08:13 All radiology interpretation(s) finalized by discharge EKG Data EKG 1: Attestation: I personally reviewed and interpreted this EKG as follows: EKG interpretation date: 02/16/25 EKG interpretation time: 08:12 Interpretation: nsr hr [address] elevation qrs 115 qtc 377 Discharge Plan Discharge Patient Disposition: Home Clinical Impression: Right temporal lobe mass, Generalized seizure, Atypical chest pain Condition: Stable Prescriptions: No Action levetiracetam [Keppra XR] 750 mg tablet extended release 24 hr 2,250 mg PO DAILY 30 Days Qty: 90 0RF pantoprazole 40 mg tablet,delayed release (DR/EC) 40 mg PO DAILY Qty: 30 0RF metoprolol succinate [Toprol XL] 25 mg tablet extended release 24 hr 50 mg PO DAILY Qty: 60 0RF losartan 50 mg tablet 50 mg PO DAILY ibuprofen [Advil] 200 mg Tablet 800 mg PO Q6H PRN (Reason: Fever Or Pain) Discharge Orders: Discharge ED (Routine); Ordered 02/16/25 Ordered By: Mazin Kelly Referrals: Dawson Carvalho NP [Primary Care Provider, Nurse Practitioner] - 1-3 days Discharge Diet: Advance as tolerated Discharge Activity: Resume usual activity Patient Instructions: Generalized Tonic Clonic Seizures (ED) Print Language: Gabonese Coding Level of Care Code ED Electric Organ Assembler And Checker for Yahir Munoz
[2025-02-16] MEDS: LORazepam 2 mg/mL INJ 1 mL 1 MG IVP (08:15)
[2025-02-16 08:18] LABS: Hematocrit 45.3 % (37-53); Hemoglobin 15.90 g/dL (11.27-16.99); Mean Corpuscular HGB Conc 35.1 g/dL (30-55); Mean Corpuscular Hemoglobin 30.4 pg (27-33); Mean Corpuscular Volume 86.6 fl (82-101); Nucleated Red Blood Cells % 0 %; Platelet Count 304 10^3/cmm (157-399); Red Blood Count 5.23 10^6/uL (3.85-5.65); White Blood Count 6.95 10^3/uL (3.29-11.43)
[2025-02-16 08:34] LABS: Troponin(5th) Baseline 11 ng/L (0-15)
[2025-02-16 08:44] LABS: Alanine Aminotransferase 37 U/L (0-41); Albumin Level 4.7 g/dL (3.5-5.2); Alkaline Phosphatase 87 U/L (40-130); Anion Gap 22.3 (5-19); Aspartate Amino Transferase 22 U/L (0-40); Blood Urea Nitrogen 9 mg/dL (6-20); Calcium 9.1 mg/dL (8.5-10.5); Carbon Dioxide 17 mmol/L (22-29); Chloride 102 mmol/L (98-107); Creatinine Clr Calc Pharmacy 160.2794; Globulin 2.9 g/dL (1.3-4.6); Glucose 96 mg/dL (65-115); Lipase 34 U/L (13-60); Osmolality Calculated 283 mOsm/kg (285-295); Potassium 4.3 mmol/L (3.5-5.1); Sodium 137 mmol/L (136-145); Total Protein 7.6 g/dL (6.6-8.7)
[2025-02-16 09:09] VITALS: BP 135/81; PULSE 75; O2SAT 97
== END 2025-02-16 09:10 | disposition home or self-care (01) ==
PROVIDERS: Emergency Provider Emergency Medicine; PCP Nurse Practitioner Family
DX: G93.89 Other specified disorders of brain (principal); G40.909 Epilepsy, unspecified, not intractable, without status epilepticus; R07.89 Other chest pain; Z87.891 Personal history of nicotine dependence
CPT/HCPCS: 71045; 80053; 83690; 84484; 85025; 93005; 96374; 99285; J2060

== ENCOUNTER 2025-02-21 10:37 | Emergency (ER) | payer BC, MEDICAID, SELFPAY ==
[2025-02-21 10:41] VITALS: BP 142/95; PULSE 82; RESP 17; TEMP 36.4; O2SAT 98; BMI 34.8
--- NOTE | 2025-02-21 10:42 | XRR_ITS ---
PROCEDURE INFORMATION: Exam: XR Chest Exam date and time: 02/21/2025 10:44 AM Age: 39 years old Clinical indication: Pain; Chest pressure; Additional info: Chest pain; Dizziness; Weakness TECHNIQUE: Imaging protocol: Radiologic exam of the chest. Views: 1 view. COMPARISON: CR XR chest 1V portable [id number] 02/16/2025 8:13 AM FINDINGS: Lungs: Unremarkable. No consolidation. Pleural spaces: Unremarkable. No gross pleural effusion. No pneumothorax. Heart/Mediastinum: Unremarkable. No cardiomegaly. Bones/joints: Unremarkable. XR/XR chest 1V portable [id number] IMPRESSION: No acute findings.
--- NOTE | 2025-02-21 10:44 | ECG_ITS ---
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
[2025-02-21 10:52] LABS: Hematocrit 43.8 % (37-53); Hemoglobin 15.20 g/dL (11.27-16.99); Mean Corpuscular HGB Conc 34.7 g/dL (30-55); Mean Corpuscular Hemoglobin 30.2 pg (27-33); Mean Corpuscular Volume 86.9 fl (82-101); Nucleated Red Blood Cells % 0 %; Platelet Count 305 10^3/cmm (157-399); Red Blood Count 5.04 10^6/uL (3.85-5.65); White Blood Count 8.05 10^3/uL (3.29-11.43)
[2025-02-21 11:10] LABS: Troponin(5th) Baseline 11 ng/L (0-15)
--- NOTE | 2025-02-21 11:11 | ED_ITS ---
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 Parikh several times been emergency room multiple times he was at [place] yesterday he is on Keppra. Previous EEG was normal. Notes reviewed from Dr. Parikh. He feels like the Keppra is still allowing number of breakthrough seizures. He states he has had several since he was seen initially he was not able to get the medication filled that the neurologist had sent in when he was seen in [place]. He was prescribed Vimpat 50 mg twice a day. 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 He has been advised previously not to drive he did drive with his children today to the emergency room. Along with these episodes he has mild chest discomfort has been evaluated multiple times for this and had a stress test last year which was normal. Associated symptoms: Deny chest pain, chills or fever(s) Related Data Home Medications ?Medication ?Instructions ?Recorded ?Confirmed ibuprofen 200 mg tablet (Advil) 800 mg PO Q6H PRN Feve r Or Pain 01/22/25 02/24/25 losartan 50 mg tablet 50 mg PO DAILY 01/22/2508/15 levetiracetam 750 mg 1,500 mg PO BID 02/21/2508/15 tablet,extended release 24 hr (Keppra XR) metoprolol succinate 25 mg 50 mg PO DAILY 02/21/2508/15 tablet,extended release 24 hr (Toprol XL) Previous Rx's ?Medication ?Instructions ?Recorded pantoprazole 40 mg tablet,delayed 40 mg PO DAILY #30 t abs 05/28/23 release lacosamide 100 mg tablet (Vimpat) 100 mg PO BID 30 day s #60 tabs 02/24/25 Allergies Allergy/AdvReac Type Severity Reaction Status Date / Time No Known Allergies Allergy Verified 02/24/25 14:40 Review of Systems 2 Const: Denies: fever(s) or chills Card: Denies: chest pain Resp: Denies: dyspnea GI: Denies: abdominal pain : Denies: dysuria, urinary frequency or urinary urgency Musc: Denies: neck pain or back pain Skin/Breast: Denies: rash PFSH ED 2 PFSH: Medical History 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 Decreased libido Erectile dysfunction Social History Smoking and tobacco/nicotine status: former use of tobacco/nicotine (quit 01/26/25 nicotine pouches) Alcohol intake: current Alcohol intake frequency: few times a week Substance/Drug Use: unknown Adopted: Yes Caregiver/support person: No Lives independently: Yes Marital status: Single Current occupational status: employed Current gender identity: Male Physical Exam 2 Const: COMMON NORMALS: no acute distress GENERAL APPEARANCE: cooperative and comfortable ORIENTATION/CONSCIOUSNESS: Yes awake, Yes oriented to person, Yes oriented to place and Yes oriented to time HENMT: COMMON NORMALS: normocephalic, atraumatic and hearing grossly normal bilaterally HEAD & SCALP: normocephalic and atraumatic Resp: COMMON NORMALS: normal respiratory effort, No retractions, No use of accessory muscles and clear to auscultation bilaterally AUSCULTATION: clear to auscultation bilaterally Cardio: COMMON NORMALS: regular rate, regular rhythm and No murmurs present (Cardio) RATE: regular rate RHYTHM: regular rhythm GI: COMMON NORMALS: Soft to palpation and No hepatosplenomegaly present A USCULTATION: Yes normoactive bowel sounds PALPATION: Yes Soft to palpation, No Tenderness to palpation present (GI), No Guarding due to palpation present (GI) and Yes No hepatosplenomegaly present Extremity: COMMON NORMALS: normal to inspection, capillary refill normal, no clubbing, cyanosis or edema, no calf tenderness and no pedal edema Neuro: SENSORIUM/ORIENTATION: Yes oriented to person, Yes oriented to place and Yes oriented to time Skin: COMMON NORMALS: no rashes or lesions noted GENERAL SKIN EXAM: no rashes or lesions noted Course 2 Vital Signs: Vital signs: Vital Signs Temperature 97.5 F L 02/21/25 10:41 Pulse Rate 84 02/21/25 12:02 Respiratory Rate 16 02/21/25 12:02 Blood Pressure 142/95 02/21/25 12:02 Pulse Oximetry 98 02/21/25 12:02 Oxygen Delivery Me thod Room Air 02/21/25 12:02 MDM - Seizure MDM Narrative Medical decision making narrative: Patient seen and evaluated he continues to have these episodes that are thought to be seizures he has been seen in [place] he was prescribed Vimpat but due to some logistical issues he was not able to get the medications. We sent in a second prescription to a pharmacy that is open. He has follow-up scheduled with neurology in [place] for possible resection of the temporal mass.Patient has intermittently had chest pain associated these as well. He has been evaluated multiple times for this no significant finding EGD done today did not show any significant abnormalities. He is not having further chest pain. Lab Data 02/21/25 10:47 02/21/25 10:47 Labs: Radiology Impressions Chest X-Ray 02/21/25 10:42 IMPRESSION: No acute findings. Laboratory Results WBC 8.05 10^3/uL (3.29-11.43) 02/21/25 10:47 RBC 5.04 10^6/uL (3.85-5.65) 02/21/25 10:47 Hgb 15.20 g/dL (11.27-16.99) 02/21/25 10:47 Hct 43.8 % (37-53) 02/21/25 10:47 MCV 86.9 fl (82-101) 02/21/25 10:47 MCH 30.2 pg (27-33) 02/21/25 10:47 MCHC 34.7 g/dL (30-55) 02/21/25 10:47 RDW 12.6 % (12.1-15.1) 02/21/25 10:47 Plt Count 305 10^3/cmm (157-399) 02/21/25 10:47 MPV 8.6 fL (7.4-10.4) 02/21/25 10:47 Neut % (Auto) 53.6 % 02/21/25 10:47 Lymph % (Auto) 37.5 % 02/21/25 10:47 Pope % (Auto) 6.2 % 02/21/25 10:47 Eos % (Auto) 1.6 % 02/21/25 10:47 Baso % (Auto) 0.7 % 02/21/25 10:47 Neut # (Auto) 4.31 10^3/uL (1.8-7.7) 02/21/25 10:47 Lymph # (Auto) 3.0 10^3/uL (0.8-4.8) 02/21/25 10:47 Pope # (Auto) 0.5 10^3/uL (0.2-0.9) 02/21/25 10:47 Eos # (Auto) 0.1 10^3/uL (0.0-0.8) 02/21/25 10:47 Baso # (Auto) 0.1 10^3/uL (0.0-0.1) 02/21/25 10:47 Nucleated RBC % (auto) 0 % 02/21/25 10:47 Nucleated RBCs # 0.0 /100WBC 02/21/25 10:47 Sodium 139 mmol/L (136-145) 02/21/25 10:47 Potassium 4.2 mmol/L (3.5-5.1) 02/21/25 10:47 Chloride 106 mmol/L (98-107) 02/21/25 10:47 Carbon Dioxide 23 mmol/L (22-29) 02/21/25 10:47 Anion Gap 14.2 (5-19) 02/21/25 10:47 BUN 11 mg/dL (6-20) 02/21/25 10:47 Creatinine 0.9 mg/dL (0.7-1.2) 02/21/25 10:47 GFR Calculation 95.0 mL/min (90-130) 02/21/25 10:47 Glucose 106 mg/dL (65-115) 02/21/25 10:47 Calculated Osmolality 288 mOsm/kg (285-295) 02/21/25 10:47 Lactic Acid 1.5 mmol/L (0.5-2.2) 02/21/25 10:47 Calcium 9.5 mg/dL (8.5-10.5) 02/21/25 10:47 Total Bilirubin 0.3 mg/dL (0.15-1.2) 02/21/25 10:47 AST 22 U/L (0-40) 02/21/25 10:47 ALT 35 U/L (0-41) 02/21/25 10:47 Alkaline Phosphatase 86 U/L (40-130) 02/21/25 10:47 Creatine Kinase 207 U/L (39-308) 02/21/25 10:47 Troponin T Baseline 11 ng/L (0-15) 02/21/25 10:47 Total Protein 7.4 g/dL (6.6-8.7) 02/21/25 10:47 Albumin 4.8 g/dL (3.5-5.2) 02/21/25 10:47 Globulin 2.6 g/dL (1.3-4.6) 02/21/25 10:47 All radiology interpretation(s) finalized by discharge EKG Data EKG 1: Attestation: I personally reviewed and interpreted this EKG as follows: Interpretation: EKG 02/21/2025 1044 sinus rhythm no acute ST changes noted rate of 81 OK interval 162 QTc 408 no change from previous EKGs compared to EKG to EKG 02/16/2025 Discharge Plan Discharge Patient Disposition: Home Clinical Impression: Focal and partial seizures, Right temporal lobe mass Condition: Stable Prescriptions: No Action lacosamide [Vimpat] 100 mg tablet 100 mg PO BID 30 Days Qty: 60 3RF pantoprazole 40 mg tablet,delayed release (DR/EC) 40 mg PO DAILY Qty: 30 0RF losartan 50 mg tablet 50 mg PO DAILY ibuprofen [Advil] 200 mg Tablet 800 mg PO Q6H PRN (Reason: Fever Or Pain) metoprolol succinate [Toprol XL] 25 mg tablet extended release 24 hr 50 mg PO DAILY levetiracetam [Keppra XR] 750 mg tablet extended release 24 hr 1,500 mg PO BID Discharge Orders: Discharge ED (Routine); Ordered 02/21/25 Ordered By: Delfino Encarnacion Referrals: Dawson Carvalho NP [Primary Care Provider, Nurse Practitioner] Discharge Diet: Usual diet Discharge Activity: Limit activity as instructed Patient Instructions: Opioid Safety, Pain Management, Patient Portal & [place] Instructions Activity Restrictions/Additional Instructions: Thank you for choosing [facility] for your healthcare needs today. It is very important that you follow up as instructed or that you return to the Emergency Department should you have concerns or if your condition changes or worsens in any way. Emergency department visits are focused on emergent conditions, in some cases you may require further evaluation on an outpatient basis. You were seen in the emergency room with concerns about your ongoing seizures. You have been seen yesterday and reported you are unable to get the prescription from the pharmacy due to some logistical issues. We represcribed your medication to the pharmacy of your choice. Begin taking immediately. Your other evaluation today labs EKG were normal. It is very important that you do not drive a motor vehicle until cleared to resume driving specifically by neurology. (Please note that included in your discharge packet is information concerning opioid safety and pain management. This information is given to all patients were discharged from the ER regardless of their discharge diagnosis or the medicines they usually take or are prescribed.) Print Language: Setswana Coding Level of Care Code ED Prison Officer for Yahir Munoz
[2025-02-21 11:12] LABS: Lactic Sepsis W/Reflex 1.5 mmol/L (0.5-2.2)
[2025-02-21 11:17] LABS: Alanine Aminotransferase 35 U/L (0-41); Albumin Level 4.8 g/dL (3.5-5.2); Alkaline Phosphatase 86 U/L (40-130); Anion Gap 14.2 (5-19); Aspartate Amino Transferase 22 U/L (0-40); Blood Urea Nitrogen 11 mg/dL (6-20); Calcium 9.5 mg/dL (8.5-10.5); Carbon Dioxide 23 mmol/L (22-29); Chloride 106 mmol/L (98-107); Creatinine Clr Calc Pharmacy 143.9126; Globulin 2.6 g/dL (1.3-4.6); Glucose 106 mg/dL (65-115); Osmolality Calculated 288 mOsm/kg (285-295); Potassium 4.2 mmol/L (3.5-5.1); Sodium 139 mmol/L (136-145); Total Protein 7.4 g/dL (6.6-8.7)
--- NOTE | 2025-02-21 11:29 | PC.PHAR ---
Pt has new paperwork from [facility] showing current med list from 02/19/25
[2025-02-21 12:02] VITALS: BP 142/95; PULSE 84; RESP 16; O2SAT 98
--- NOTE | 2025-02-21 13:14 | PC.NURSE ---
this nurse put a hotline in concerning the patients children safety. Pt has a seizure disorder and has been told not to drive per Doctors. Pt drove children to the hospital today for his medication refill. [facility] showed up and talked to the pt, Childrens division said he is cleared as long as someone is going to drive the children home. Children division to follow up with Pt at his home later this evening.
--- NOTE | 2025-02-21 13:32 | PC.NURSE ---
PT STEPPED OUTSIDE HIS ROOM AND STATED THEY WERE READY TO LEAVE. THIS NURSE ASKED PT IF THE RIDE FOR HIS CHILDREN WAS HERE YET. PT VERBALIZED THAT THE RIDE WAS NOT HERE BUT WOULD BE AND THAT THEY WANTED TO WAIT IN THE WAITING ROOM. THIS NURSE INFORMED PT THAT THE RIDE FOR THE CHILDREN HAS TO BE VISUALIZED PRIOR TO LETTING PT GO FROM ED. PT VERBALIZED UNDERSTANDING. WHILE WAITING IN ROOM, PT CONTINUING TO TALK ON THE PHONE TO PEOPLE VERBALIZING FRUSTRATIONS WITH THE ED STAFF DUE TO HAVING TO REPORT POTENTIAL DANGER OF HIS CHILDREN WITH HIS CONDITION POSSIBLY IMPAIRING HIS DRIVING.
--- NOTE | 2025-02-21 13:35 | PC.NURSE ---
Pt opened door and stated he was ready to go. pt was informed we cannot let him leave until a ride is here for his children. pt sat on the bed and started calling family members and telling them that we won't let him leave and that he was pissed we called dfs on him. one of pts daughters was playing in the doorway of room. pt picked daughter up and slammed her into the chair in the room and told her not to get up or move very aggressively. pt then sat back on the bed and continued to complain about how we wouldn't let him leave. pt bragging on the phone about how he unhooked himself from monitors since we wouldn't let him leave. pt requesting to go to the waiting room in the meantime. pt informed we had to make sure his children had a safe ride home per dfs and the ed provider. charge nurse notified and aware that pt is agitated.
== END 2025-02-21 13:48 | disposition home or self-care (01) ==
PROVIDERS: Emergency Provider Family Medicine; PCP Nurse Practitioner Family
DX: G40.209 Localization-related (focal) (partial) symptomatic epilepsy and epileptic syndromes with complex partial seizures, not intractable, without status epilepticus (principal); G93.89 Other specified disorders of brain; Z87.891 Personal history of nicotine dependence
CPT/HCPCS: 36415; 71045; 80053; 82550; 83605; 84484; 85025; 93005; 99285; J9999